=== PATIENT | female | born 2000 | race Caucasian/White ===

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

== ENCOUNTER 2022-03-06 03:23 | Emergency (ER) | payer OTHER ==
--- OUTSIDE RECORDS SUMMARY | 2022-03-06 03:26 | XMS REPORT | Continuity of Care Document ---
:2000 Author Organization [facility] t Address [address] [place] [address] Care Team Providers Name Role Phone Unique_Adina Attending Clinician Unavailable Unique_Adina Admitting Clinician Unavailable Payers Payer Name Policy Type Policy Number Effective Date Expiration Date Parvin alcaraz [facility] [id number] 2020 00:00:00 Problems Condition Condition Condition Status Onset Resolution Last Treating Co mments Source Name Details Category Date Date Treatment Clinician Date Trichomona Trichomona Problem Active M atagor l l 18 da vaginitis Vaginitis 00:00: Medi margarita 00 Group Allergies, Adverse Reactions, Alerts This patient has no known allergies or adverse reactions. Social History Smoking Status Start Date Stop Date Source Current Some Day Smoker [facility] Medications Ordered Filled Start [...] Source BP Diastolic 2021-06-25 00:00:00 82 mm[Hg] [facility] Height 2021-06-25 00:00:00 60.8 [in_i] [facility] BMI (Body Mass 2021-06-25 00:00:00 23 kg/m2 [facility] Index) Group BP Systolic 2021-06-25 00:00:00 137 mm[Hg] [facility] Body Weight 2021-06-25 00:00:00 1936 [oz_av] [facility] Procedures This patient has no known procedures. Plan of Care Planned Activity Planned Date Details Comments Source Diagnostic Test 2021-06-25 CMP, serum or plasma [facility] Pending 00:00:00 [code = CMP, serum Group or plasma] Diagnostic Test 2021-06-25 TSH + T4, serum [facility] Pending 00:00:00 [code = TSH + T4, Group serum] Diagnostic Test 2021-06-25 urinalysis complete, [facility] Pending 00:00:00 reflex culture [code Group = urinalysis complete, reflex culture] Diagnostic Test 2021-06-25 CBC w/ auto diff [facility] 00:00:00 [code = CBC w/ auto Group diff] Diagnostic Test 2021-06-25 [facility] Pending 00:00:00 [code = lipid panel, Group serum] Diagnostic Test 2021-06-25 [facility]oglobin [facility] Pending 00:00:00 A1c), blood [code = Group HbA1c (hemoglobin A1c), blood] Diagnostic Test 2021-06-[address] [facility] Pending 00:00:00 virus A + B and SARS Group CoV + SARS CoV 2 Ag panel, IA, upper respiratory specimen [code = rapid influenza virus A + B and SARS CoV + SARS CoV 2 Ag panel, IA, upper respiratory specimen] Future Appointment 2022-06-25 Liliane Unique, Everardo [facility] 00:00:00 [facility] [address]; [place] [address] Encounters Start End Encounter Admission Attending Care Care Encounter Source Date/Time Date/Time Type Type Clinicians Facility Department ID 2021-06-25 2021-06-25 Outpatient AlmadAina [facility] [id number] [place] 04:57:00 04:57:00 [facility] 2021-06-25 2021-06-25 Liliane JOCY [place] - [id number] [facility] 00:00:00 00:00:00 Pat Arguelles [facility] [employer]FFY CANDY MAKER: [address], [place] [address] , Ph. Results Test Description Test Time [...] (test code = RAPID FLU B) negative [facility] W Auto Differential panel - [id number] 02:07:00 Test Item Value Reference Range Interpretation Comments white blood count (test code = 9.1 K/uL 4.0-11.5 white blood count) red blood count (test code = red 5.09 M/uL 3.80-5.20 blood count) hemoglobin (test code = 14.5 g/dL 10.5-15.7 hemoglobin) hematocrit (test code = 44.4 % 34.0-50.0 hematocrit) MCV [Entitic volume] (test code = 87.2 fL 86.0-100.0 92337-7) mean corpuscular hemoglobin (test 28.5 pg 26.2-33.4 [...] 44.4-80.1 leukocytes in Blood (test code = 13323-8) Immature granulocytes [#/volume] 0.03 K/uL 0.00-0.03 in Blood (test code = 18765-8) lymphocyte% (test code = 21.0 % 10.0-50.0 lymphocyte%) mono % (test code = mono %) 5.5 % 3.6-12.0 eos % (test code = eos %) 3.2 % 0.0-5.4 Basophils/100 leukocytes in 0.8 % 0.1-1.2 Unspecified specimen (test code = 51645-1) Band form neutrophils [#/volume] 6.33 K/uL 1.56-6.13 H in Blood (test code = 40045-4) Lymphocytes [#/volume] in 1.92 K/uL 1.18-3.74 Unspecified specimen by Automated count (test code = 11809-5) mono # (test code = mono #) 0.50 K/uL 0.24-0.86 eos # (test code = eos #) 0.29 K/uL 0.04-0.36 basophil # (test code = basophil 0.07 K/uL 0.01-0.08 #) NRBC% (test code = NRBC%) 0 /100 WBC 0-0.2 NRBC# (test code = NRBC#) 0 K/uL [facility] - Serum or [id number] 02:07:00 Test Item Value Reference Range Interpretation Comments cholesterol level (test code = 229 mg/dL 150-200 H cholesterol level) triglycerides level (test code = 63 mg/dL <150 triglycerides level) HDL cholesterol (test code = HDL 70 mg/dL >65 cholesterol) LDL cholesterol direct (test code = 139 mg/dL <100 H LDL cholesterol direct) cholesterol risk ratio (test code = 3.271 cholesterol risk ratio) [facility] W Reflex Culture panel - Urine 2021-06-25 02:07:00 Test Item Value Reference Range Interpretation Comments Color of Urine by Auto (test code = yellow 96616-6) Appearance of Urine (test code = SL cloudy clear A 5767-9) Glucose [Presence] in Urine by negative negative Automated test strip (test code = 54069-1) Bilirubin.total [Mass/volume] in negative negative Urine (test code = 1977-11) Ketones [Mass/volume] in Urine by =1 negative H Automated test strip (test code = 44227-2) Specific gravity of Urine by 1.031 1.003-1.030 H Automated test strip (test code = 26945-7) blood urine (test code = blood negative negative urine) pH of Urine (test code = 2756-5) 5.500 5-9 protein urine (UA) (test code = trace negative protein urine (UA)) Urobilinogen [Presence] in Urine normal 0.2-1.0 (test code = 04741-1) Nitrite [Presence] in Urine by Test negative negative strip (test code = 5802-4) Leukocyte esterase [Presence] in =4 negative H Urine by Automated test strip (test code = 11733-7) Erythrocytes [#/volume] in Urine by =11-14 0-5 H Automated count (test code = 798-9) Leukocytes [#/area] in Urine =30-49 0-5 H sediment by Automated count (test code = 30002-5) Epithelial cells [Presence] in =11-14 0-5 Urine sediment by Light microscopy (test code = 94177-3) Bacteria identified in Urine by large (3 none detect H Culture (test code = 630-4) Casts [#/area] in Urine sediment by =11-14 none detect H Automated count (test code = 98656-4) urine culture added? (test code = yes urine culture added?) trichomonas, urine (test code = =3-4 none seen H trichomonas, urine) Pathologic casts [Presence] in none seen none detect Urine by Automated (test code = 67263-5) [facility] Urine by [id number] 02:07:00Bacteria Ur [facility]Mass/volume] in [id number] 00:00:00 Test Item Value Reference Range Interpretation Comments Hemoglobin A1c [Mass/volume] in Blood 5.1 % 4.0-6.0 (test code = 13683-3) [facility] CenterCom[facility] 2000 panel - Serum or Plasma [...] Serum or Plasma (test code = 6768-6) [facility]ropin [Units/volume] in Serum or [id number] 00:00:00 Test Item Value Reference Range Interpretation Comments Thyrotropin [Units/volume] in 0.73 uIU/mL 0.36-3.74 Serum or Plasma (test code = 3016-3) [facility] Center[facility]yroxine (T4) [Mass/volume] in Serum or [id number] 00:00:00 Test Item Value Reference Range Interpretation Comments T4 (test code = T4) 10.4 ug/dL 4.5-11.7 [facility]
--- NOTE | 2022-03-06 03:55 | EDPHYS ---
Physician Documentation [facility] Name: Bryon Trinidad Age: 21 yrs Sex: Female : 2000 Arrival Date: 03/06/2022 Time: 03:26 Bed 16 Private MD: ED Physician Lisette Perry HPI: 03/06 03:49 This 21 yrs old Female presents to ER via Ambulatory with complaints of Swelling Of sp3 Tongue and salivary gland. 03:49 21-year-old female with no significant past medical history and history of sp3 sialolithiasis and prior salivary gland infection presents to the ED for 2-day history of right lower tongue and frenulum pain along with swelling at the lower mandibular salivary gland meatus. This has been occurring for the last 24 hours progressive fashion fever, difficulty swallowing, tongue swelling, pharyngeal swelling, shortness of breath, chest pain or any other symptoms associated. Review of systems is otherwise negative.. Historical: - Allergies: 03:51 No Known Allergies; jb4 - PMHx: 03:51 Asthma; jb4 - PSHx: 03:51 None; jb4 - Immunization history:: Adult Immunizations up to date. - Social history:: Smoking status: Patient denies any tobacco usage or history of. Patient uses street drugs, marijuana. ROS: 03:51 Constitutional: Negative for fever, chills, and weight loss, Eyes: Negative for injury, sp3 pain, redness, and discharge, Neck: Negative for injury, pain, and swelling, Cardiovascular: Negative for chest pain, palpitations, and edema, Respiratory: Negative for shortness of breath, cough, wheezing, and pleuritic chest pain, Abdomen/GI: Negative for abdominal pain, nausea, vomiting, diarrhea, and constipation, Back: Negative for injury and pain, MS/Extremity: Negative for injury and deformity, Skin: Negative for injury, rash, and discoloration, Neuro: Negative for headache, weakness, numbness, tingling, and seizure, Psych: Negative for depression, anxiety, suicide ideation, homicidal ideation, and hallucinations, Allergy/Immunology: Negative for hives, rash, and allergies, Endocrine: Negative for neck swelling, polydipsia, polyuria, polyphagia, and marked weight changes. 03:51 All other systems are negative. Exam: 03:51 Constitutional: This is a well developed, well nourished patient who is awake, alert, sp3 and in no acute distress. Head/Face: Normocephalic, atraumatic. Eyes: Pupils equal round and reactive to light, extra-ocular motions intact. Lids and lashes normal. Conjunctiva and sclera are non-icteric and not injected. Cornea within normal limits. Periorbital areas with no swelling, redness, or edema. Neck: Trachea midline, no thyromegaly or masses palpated, and no cervical lymphadenopathy. Supple, full range of motion without nuchal rigidity, or vertebral point tenderness. No Meningismus. Chest/axilla: Normal chest wall appearance and motion. Nontender with no deformity. No lesions are appreciated. Cardiovascular: Regular rate and rhythm with a normal S1 and S2. No gallops, murmurs, or rubs. Normal PMI, no JVD. No pulse deficits. Respiratory: Lungs have equal breath sounds bilaterally, clear to auscultation and percussion. No rales, rhonchi or wheezes noted. No increased work of breathing, no retractions or nasal flaring. Abdomen/GI: Soft, non-tender, with normal bowel sounds. No distension or tympany. No guarding or rebound. No evidence of tenderness throughout. Skin: Warm, dry with normal turgor. Normal color with no rashes, no lesions, and no evidence of cellulitis. MS/ Extremity: Pulses equal, no cyanosis. Neurovascular intact. Full, normal range of motion. Neuro: Awake and alert, GCS 15, oriented to person, place, time, and situation. Cranial nerves II-XII grossly intact. Motor strength 5/5 in all extremities. Sensory grossly intact. Cerebellar exam normal. Normal gait. Psych: Awake, alert, with orientation to person, place and time. Behavior, mood, and affect are within normal limits. 03:51 ENT: Normal ENT exam with exception of mild swelling in the right lower mandibular salivary gland with associated mild pain. There is no tongue swelling or pharyngeal swelling. Airway is intact the patient has no difficulty with secretions or breathing. Pulse ox is 100% on room air.. Vital Signs: 03:49 BP 131 / 65; Pulse 92; Resp 16; Temp 99.3(O); Pulse Ox 99% on R/A; Weight 58.97 kg; jb4 Height 5 ft. 1 in. (154.94 cm); Pain 3; 03:49 Body Mass Index 24.56 (58.97 kg, 154.94 cm) jb4 MDM: 03:46 Patient medically screened. sp3 03:52 Data reviewed: vital signs, nurses notes. ED course: Will administer ketorolac 30 mg IM sp3 and discharge patient on p.o. Augmentin. Patient likely has a mild salivary gland infection there is no signs of sepsis, pharyngitis, Bo's angina, lymphadenopathy, retropharyngeal abscess, airway compromise or angioedema, dental infection, sinusitis, or any other diagnoses at this time. Patient is okay with the plan and has no further questions. She will follow-up with her primary care physician.. Administered Medications: 04:05 Drug: Ketorolac 30 mg Route: IM; Site: left deltoid; jb4 04:05 Follow up: Response: Medication administered at discharge. jb4 Disposition Summary: 03/06/22 03:54 Discharge Ordered Location: Home sp3 Condition: Stable sp3 Diagnosis - Acute sialoadenitis sp3 Followup: sp3 - With: Private Physician - When: Upon discharge from the Emergency Department - Reason: Recheck today's complaints Discharge Instructions: - Discharge Summary Sheet sp3 - Salivary Gland Infection sp3 Forms: - Medication Reconciliation Form sp3 - Thank You Letter sp3 - Antibiotic Education sp3 - Prescription Opioid Use sp3 Prescriptions: - Augmentin 875-125 mg Oral Tablet - take 1 tablet by ORAL route every 12 hours for 10 days; 20 tablet; Refills: 0, sp3 Product Selection Permitted Signatures: Dakota Toure RN RN jb4 Lisette Perry MD MD sp3
--- NOTE | 2022-03-06 03:55 | ER ---
Nurse's Notes [facility] Name: Byron Trinidad Age: 21 yrs Sex: Female : 2000 Arrival Date: 03/06/2022 Time: 03:26 Bed 16 Private MD: Diagnosis: Acute sialoadenitis Presentation: 03/06 03:32 Chief complaint: Patient states: swelling under tongue off and on x 2 months reports kl worse tonight able to handle secretions respirations even non labored reports similar episode previously. 03:32 Method Of Arrival: Ambulatory kl 03:49 Coronavirus screen: At this time, the client does not indicate any symptoms associated jb4 with coronavirus-19. Ebola Screen: No symptoms or risks identified at this time. Initial Sepsis Screen: Does the patient meet any 2 criteria? HR > 90 bpm. Yes Does the patient have a suspected source of infection? No. Patient's initial sepsis screen is negative. Risk Assessment: Do you want to hurt yourself or someone else? Patient reports no desire to harm self or others. Onset of symptoms was March 06, 2022. 03:49 Acuity: DILAN 4 jb4 Triage Assessment: 03:34 General: Appears in no apparent distress. comfortable, Behavior is calm, cooperative. kl Respiratory: Airway is patent Trachea midline Respiratory effort is even, unlabored, Respiratory pattern is regular, symmetrical. Historical: - Allergies: 03:51 No Known Allergies; jb4 - PMHx: 03:51 Asthma; jb4 - PSHx: 03:51 None; jb4 - Immunization history:: Adult Immunizations up to date. - Social history:: Smoking status: Patient denies any tobacco usage or history of. Patient uses street drugs, marijuana. Screenin:06 Abuse screen: Denies threats or abuse. Nutritional screening: No deficits noted. jb4 Tuberculosis screening: No symptoms or risk factors identified. Fall Risk None identified. Assessment: 03:51 General: Appears in no apparent distress. comfortable, Behavior is calm, cooperative, jb4 appropriate for age. Pain: Complains of pain in mouth Pain does not radiate. Pain currently is 3 out of 10 on a pain scale. Neuro: Level of Consciousness is awake, alert, obeys commands, Oriented to person, place, time, situation. Cardiovascular: Patient's skin is warm and dry. Respiratory: Airway is patent Respiratory effort is even, unlabored, Respiratory pattern is regular, symmetrical, Breath sounds are clear bilaterally. GI: No signs and/or symptoms were reported involving the gastrointestinal system. : No signs and/or symptoms were reported regarding the genitourinary system. EENT: swelling to the right underside of the tongue is noted.. Derm: Skin is intact, Skin is pink, warm \T\ dry. Musculoskeletal: Circulation, motion, and sensation intact. Range of motion: intact in all extremities. Vital Signs: 03:49 BP 131 / 65; Pulse 92; Resp 16; Temp 99.3(O); Pulse Ox 99% on R/A; Weight 58.97 kg; jb4 Height 5 ft. 1 in. (154.94 cm); Pain 3/10; 03:49 Body Mass Index 24.56 (58.97 kg, 154.94 cm) jb4 ED Course: 03:26 Patient arrived in ED. ja2 03:45 Lisette Perry MD is Attending Physician. sp3 03:49 Dakota Toure RN is Primary Nurse. jb4 03:50 Triage completed. jb4 03:51 Arm band placed on right wrist. jb4 04:06 Patient has correct armband on for positive identification. Bed in low position. Call jb4 light in reach. Side rails up X 1. Client placed on continuous cardiac and pulse oximetry monitoring. NIBP monitoring applied. 04:06 No provider procedures requiring assistance completed. Patient did not have IV access jb4 during this emergency room visit. Administered Medications: 04:05 Drug: Ketorolac 30 mg Route: IM; Site: left deltoid; jb4 04:05 Follow up: Response: Medication administered at discharge. jb4 Outcome: 03:54 Discharge ordered by . sp3 04:06 Discharged to home ambulatory. jb4 04:06 Condition: stable 04:06 Discharge instructions given to patient, Instructed on discharge instructions, follow up and referral plans. medication usage, Demonstrated understanding of instructions, follow-up care, medications, Prescriptions given X 1. 04:07 Patient left the ED. jb4 Signatures: Shruthi Floyd RN RN kl Bryson, James, RN RN jb Lisette Perry MD MD sp3 Asia Granados [facility]
[2022-03-06] MEDS ORDERED: KETOROLAC 30 MG/ML INJ ONE (04:00)
[2022-03-08 04:28] VITALS: BP 131/65; TEMP 99.3; O2SAT 99
== END 2022-03-06 04:07 | disposition home or self-care (01) ==
LOC: ER 03:23
DX: K11.21 Acute sialoadenitis (principal)
CPT/HCPCS: 96372; 99283

== ENCOUNTER → 2023-07-25 | Emergency (ER) | payer OTHER ==
[~2023-07-25] MED LIST: DIPHENHYDRAMINE 50 MG/ML VIAL ONE; NA CHLORIDE 0.9% 1,000 ML ONE; dexAMETHasone 10 MG/ML VIAL ONE; dexAMETHasone 4 MG/ML VIAL ONE
--- OUTSIDE RECORDS SUMMARY | 2023-07-25 22:36 | XMS REPORT | Continuity of Care Document ---
Author Name Unknown Address [address] [facility] [address] [place] [address] [facility] Address [address] [facility]. [address] [place] [address] Care Team Providers Care Cardiology Technician Name Role Phone Pcp, Patient Does Not Have A Primary Care Physic alejandra [email or web address]_S Attending Clinician Unavaila Orestes Pascual MD Attending Clinician + [phone] ORESTES HALL Attending Clinician Unahelen lopez Doctor Unassigned, [place] Attending Clinician U JAQUELINE Gaming Attending Clinician Unavailab Jaqueline Lares DO Attending Clinician [phone] ANNIE WATERS Attending Clinician Unavailable L_Ankush Attending Clinician Unavailable Eav Fernandez PA-C Attending Clinician [phone] DHRUV ARELLANO Attending Clinician Unavailable Dhruv Arellano MD Attending Clinician [phone] Po, [facility] Main Attending Clinician UnavailEVA Su Attending Clinician Unavailable Phillip Pope MD Attending Clinician [phone] ANITA BURNHAM Attending Clinician Unavailable Anita Kamara Attending Clinician [phone] Francisco Javier Attending Clinician Unavailable LATASHA RANKIN Attending Clinician Unavailable Nurse, [facility] Attending Clinician Un available PHILLIP POPE Attending Clinician Unavailable 2, [facility] Attending Clinician Unavailable GC_GCBZW_Kadiyala_S Admitting Clinician Unavaila ble L_Pena Admitting Clinician Unavailable ANITA BURNHAM Admitting Clinician Unavailable Francisco Javier Admitting Clinician Unavailable Payers Payer Name Policy Type Policy Number Effective Date Expirati on Date Source [employer] [id number] 2020 00:00:00 RODGER AN Yemeksepeti [id number] 2018 00:00:00 Problems Condition Name Condition Details Condition Category Status Onset Date Resolution Date Last Treatment Date Treating Clinician Comments Source Sialoadeni tis Sialoadeni tis Problem Active 2021-06 00:00: 00 [facility] Sialolithi asis Sialolithi asis Problem Active 2021-06 00:00: 00 [facility] Trichomona l vaginitis Trichomona l Vaginitis Problem Active 06-26 00:00: 00 [facility] Nexplanon in place Nexplanon in place Disease Active 12-30 00:00: 00 [facility] Right ankle pain Right ankle pain Disease Active 2015-06 004 00:00: 00 [facility] Allergies, Adverse Reactions, Alerts Allergy Name Allergy Type Status Severity Reaction(s) Onset Date Inactive Date Treating Clinician Comments Source NO KNOWN ALLERGIE S Drug Class Active [facility] Social History Social Habit Start Date Stop Date Quantity Comments [facility] 2022-11-19 00:00:00 2022-11-19 00:00:00 Current non-drinker of alcohol (finding) [facility] Tobacco use and exposure 2022-11-19 00:00:00 2022-11-19 00:00:00 Smokeless tobacco non-user [facility] Exposure to SARS-CoV-2 (event) 2022-10-26 00:00:00 2022-11-05 13:21:00 Not sure [facility] History of Social function 2020-01-12 00:00:00 2020-01-12 00:00:00 [facility] Sex Assigned At 2002 00:00:00 2000 00:00:00 [facility] Smoking Status Start Date Stop Date Source Current Some Day Smoker Hung [facility] Never smoked tobacco [facility] Medications Ordered Medication Name Filled Medication Name Start Date Stop Date Current Medication? Ordering Clinician Indication Dosage Frequency Signature (SIG) Comments Components Source etonogestre L (NEXPLANON) implant 68 mg 11-19 16:45: 00 11-19 15:59 :00 No [id number] [facility] etonogestre L (NEXPLANON) implant 68 mg 11-19 16:45: 00 11-19 15:59 :00 No [id number] 68mg 68 mg, Subdermal, ONCE, 1 dose, On Fri11/19/22 at 1145, Routine
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
Use approved by: B[employer]ER C[employer]TER [facility] IBUPROFEN ORAL 11-19 10:29: 37 Yes Take by mouth. [facility] IBUPROFEN ORAL 11-19 10:29: 37 Yes Take by mouth. [facility] IBUPROFEN ORAL 11-19 10:29: 37 Yes Take by mouth. [facility] clindamycin 300 mg capsule 2021-06 00:00: 00 06-15 05:59 :00 No [id number] 300mg Take 1 capsule by mouth 4 (four) times daily for 10 days. [facility] naproxen 500 mg tablet 2021-06 00:00: 00 06-15 05:59 :00 No [id number] 500mg Take 1 tablet by mouth in the morning and 1 tablet in the evening. Take with meals. Do all this for 10 days. [facility] clindamycin 300 mg capsule 2021-06 00:00: 00 06-15 05:59 :00 No [id number] 300mg Take 1 capsule by mouth 4 (four) times daily for 10 days. [facility] naproxen 500 mg tablet 2021-06 00:00: 00 06-15 05:59 :00 No [id number] 500mg Take 1 tablet by mouth in the morning and 1 tablet in the evening. Take with meals. Do all this for 10 days. [facility] naproxen sodium 220 mg tablet 2021-06 16:01: 45 Yes 220mg Take 220 mg by mouth 2 (two) times daily with meals. [facility] naproxen sodium 220 mg tablet 2021-06 16:01: 45 Yes 220mg Take 220 mg by mouth 2 (two) times daily with meals. [facility] naproxen sodium 220 mg tablet 2021-06 16:01: 45 Yes 220mg Take 220 mg by mouth 2 (two) times daily with meals. [facility] naproxen sodium 220 mg tablet 2021-06 16:01: 45 Yes 220mg Take 220 mg by mouth 2 (two) times daily with meals. [facility] naproxen sodium 220 mg tablet 2021-06 16:01: 45 Yes 220mg Take 220 mg by mouth 2 (two) times daily with meals. [facility] naproxen sodium 220 mg tablet 2021-06 16:01: 45 Yes 220mg Take 220 mg by mouth 2 (two) times daily with meals. [facility] naproxen sodium 220 mg tablet 2021-06 16:01: 45 Yes 220mg Take 220 mg by mouth 2 (two) times daily with meals. [facility] naproxen sodium 220 mg tablet 2021-06 16:01: 45 Yes 220mg Take 220 mg by mouth 2 (two) times daily with meals. [facility] naproxen sodium 220 mg tablet 2021-06 16:01: 45 Yes 220mg Take 220 mg by mouth 2 (two) times daily with meals. [facility] naproxen sodium 220 mg tablet 2021-06 16:01: 45 Yes 220mg Take 220 mg by mouth 2 (two) times daily with meals. [facility] naproxen sodium 220 mg tablet 2021-06 16:01: 45 Yes 220mg Take 220 mg by mouth 2 (two) times daily with meals. [facility] iopamidol (ISOVUE 370-500 mL) injection 75 mL 2021-06 06:00: 00 04-17 06:00 :00 No [id number] 75mL 75 mL, Intravenou s, ONCE, 1 dose, On Fri04/17/22 at 0000, Routine [facility] NaCl 0.9% (NS) bolus infusion 1,000 mL 2021-06 06:00: 00 04-17 06:47 :00 No 1000mL at 999 mL/hr, 1,000 mL, IV Infusion, ONCE, 1 dose, On Fri04/17/22 at 0000, [facility]efTR[facility]one (ROCEPHIN) 1,000 mg in NaCl 0.9% (NS) 50 mL MINI-BAG 2021-06 05:45: 00 04-17 06:05 :00 No 1000mg 1,000 mg, IV Piggyback, ONCE, 1 dose, On Fri04/16/22 at 2345, Administer over 30 Minutes, 50 mL
Reas on for Anti-Infec tive: Documented Infection< br>Documen ashley Infection Site: Urine
D uration of Therapy: 7 days [facility] ondansetron (ZOFRAN (PF)) injection 4 mg 2021-06 05:15: 00 04-17 05:07 :00 No 4mg 4 mg, Slow IV Push, ONCE, 1 dose, On Fri04/16/22 at 2315, HUDSON [facility] ketorolac (TORADOL) injection 30 mg 2021-06 05:10: 00 04-17 05:11 :00 No 30mg 30 mg, Slow IV Push, ONCE, 1 dose, On Fri04/16/22 at 2315, Routine [facility] ondansetron 4 mg disintegrat ing tablet 2021-06 00:00: 00 Yes [id number] 4mg Take 1 tablet by mouth every 8 (eight) hours as needed for Nausea and Vomiting (N/V). [facility] ondansetron 4 mg disintegrat ing tablet 2021-06 00:00: 00 Yes [id number] 4mg Take 1 tablet by mouth every 8 (eight) hours as needed for Nausea and Vomiting (N/V). [facility] ondansetron 4 mg disintegrat ing tablet 2021-06 00:00: 00 Yes [id number] 4mg Take 1 tablet by mouth every 8 (eight) hours as needed for Nausea and Vomiting (N/V). [facility] ondansetron 4 mg disintegrat ing tablet 2021-06 00:00: 00 Yes [id number] 4mg Take 1 tablet by mouth every 8 (eight) hours as needed for Nausea and Vomiting (N/V). [facility] ondansetron 4 mg disintegrat ing tablet 2021-06 00:00: 00 Yes [id number] 4mg Take 1 tablet by mouth every 8 (eight) hours as needed for Nausea and Vomiting (N/V). [facility] ondansetron 4 mg disintegrat ing tablet 2021-06 00:00: 00 Yes [id number] 4mg Take 1 tablet by mouth every 8 (eight) hours as needed for Nausea and Vomiting (N/V). [facility] ondansetron 4 mg disintegrat ing tablet 2021-06 00:00: 00 Yes [id number] 4mg Take 1 tablet by mouth every 8 (eight) hours as needed for Nausea and Vomiting (N/V). [facility] ondansetron 4 mg disintegrat ing tablet 2021-06 00:00: 00 Yes [id number] 4mg Take 1 tablet by mouth every 8 (eight) hours as needed for Nausea and Vomiting (N/V). [facility] ondansetron 4 mg disintegrat ing tablet 2021-06 00:00: 00 Yes [id number] 4mg Take 1 tablet by mouth every 8 (eight) hours as needed for Nausea and Vomiting (N/V). [facility] ondansetron 4 mg disintegrat ing tablet 2021-06 00:00: 00 Yes [id number] 4mg Take 1 tablet by mouth every 8 (eight) hours as needed for Nausea and Vomiting (N/V). [facility] ondansetron 4 mg disintegrat ing tablet 2021-06 00:00: 00 Yes [id number] 4mg Take 1 tablet by mouth every 8 (eight) hours as needed for Nausea and Vomiting (N/V). [facility] ondansetron 4 mg disintegrat ing tablet 2021-06 00:00: 00 Yes [id number] 4mg Take 1 tablet by mouth every 8 (eight) hours as needed for Nausea and Vomiting (N/V). [facility] ondansetron 4 mg disintegrat ing tablet 2021-06 00:00: 00 Yes [id number] 4mg Take 1 tablet by mouth every 8 (eight) hours as needed for Nausea and Vomiting (N/V). [facility] cefdinir 300 mg capsule 2021-06 00:00: 00 04-28 05:59 :00 No [id number] 300mg Take 1 capsule by mouth every 12 (twelve) hours for 10 days. [facility] etonogestre l (NEXPLANON) implant 68 mg 12-31 00:45: 00 12-30 23:38 :00 No 68mg [facility] etonogestre l (NEXPLANON) implant 68 mg 12-31 00:45: 00 12-30 23:38 :00 No 68mg 68 mg, Subdermal, ONCE NOW, 1 dose, Fri12/31/19 at 1945, Routine
Use approved by: [employer]ER [employer]TER [facility] etonogestre l (NEXPLANON) implant 68 mg 7 00:45: 00 12-30 23:38 :00 No 68mg [facility] etonogestre l (NEXPLANON) implant 68 mg 7 00:45: 00 12-30 23:38 :00 No 68mg 68 mg, Subdermal, ONCE NOW, 1 dose, Fri12/31/19 at 1945, Routine
Use approved by: [employer] [facility] metroNIDAZO LE 500 mg tablet 12-18 00:00: 00 12-19 04:59 :00 No [id number] 2000mg Take 4 tablets by mouth once now for 1 dose. [facility] metroNIDAZO LE 500 mg tablet 0 -19 00:00: 00 Yes [id number] 500mg Take 1 tablet by mouth every 12 (twelve) hours. [facility] metroNIDAZO LE 500 mg tablet 0 -19 00:00: 00 Yes [id number] 500mg Take 1 tablet by mouth every 12 (twelve) hours. [facility] metroNIDAZO LE 500 mg tablet 0 19 00:00: 00 Yes [id number] 500mg Take 1 tablet by mouth every 12 (twelve) hours. [facility] metroNIDAZO LE 500 mg tablet 0 19 00:00: 00 Yes [id number] 500mg Take 1 tablet by mouth every 12 (twelve) hours. [facility] metroNIDAZO LE 500 mg tablet 0 319 00:00: 00 Yes [id number] 500mg Take 1 tablet by mouth every 12 (twelve) hours. [facility] metroNIDAZO LE 500 mg tablet 2019-0 3-19 00:00: 00 Yes [id number] 500mg Take 1 tablet by mouth every 12 (twelve) hours. [facility] metroNIDAZO LE 500 mg tablet 2019-0 3-19 00:00: 00 Yes [id number] 500mg Take 1 tablet by mouth every 12 (twelve) hours. [facility] metroNIDAZO LE 500 mg tablet 2020-0 3-19 00:00: 00 Yes [id number] 500mg Take 1 tablet by mouth every 12 (twelve) hours. [facility] metroNIDAZO LE 500 mg tablet 2020-0 3-19 00:00: 00 Yes [id number] 500mg Take 1 tablet by mouth every 12 (twelve) hours. [facility] metroNIDAZO LE 500 mg tablet 2020-0 3-19 00:00: 00 Yes [id number] 500mg Take 1 tablet by mouth every 12 (twelve) hours. [facility] metroNIDAZO LE 500 mg tablet 2020-0 3-19 00:00: 00 Yes [id number] 500mg Take 1 tablet by mouth every 12 (twelve) hours. [facility] metroNIDAZO LE 500 mg tablet 2020-0 3-19 00:00: 00 Yes [id number] 500mg Take 1 tablet by mouth every 12 (twelve) hours. [facility] metroNIDAZO LE 500 mg tablet 2020-0 3-19 00:00: 00 Yes [id number] 500mg Take 1 tablet by mouth every 12 (twelve) hours. [facility] metroNIDAZO LE 500 mg tablet 2020-0 3-19 00:00: 00 Yes [id number] 500mg Take 1 tablet by mouth every 12 (twelve) hours. [facility] metroNIDAZO LE 500 mg tablet 2020-0 3-19 00:00: 00 Yes [id number] 500mg Take 1 tablet by mouth every 12 (twelve) hours. [facility] metroNIDAZO LE 500 mg tablet 2020-0 3-19 00:00: 00 Yes [id number] 500mg Take 1 tablet by mouth every 12 (twelve) hours. [facility] metroNIDAZO LE 500 mg tablet 2020-0 3-19 00:00: 00 Yes [id number] 500mg Take 1 tablet by mouth every 12 (twelve) hours. [facility] metroNIDAZO LE 500 mg tablet 2020-0 3-19 00:00: 00 Yes [id number] 500mg Take 1 tablet by mouth every 12 (twelve) hours. [facility] metroNIDAZO LE 500 mg tablet 2020-0 3-19 00:00: 00 Yes [id number] 500mg Take 1 tablet by mouth every 12 (twelve) hours. [facility] metroNIDAZO LE 500 mg tablet 0 08-25 00:00: 00 Yes [id number] 500mg Take 1 tablet by mouth every 12 (twelve) hours. [facility] metroNIDAZO LE 500 mg tablet 08-25 00:00: 00 Yes [id number] 500mg Take 1 tablet by mouth every 12 (twelve) hours. [facility] metroNIDAZO LE 500 mg tablet 08-25 00:00: 00 Yes [id number] 500mg Take 1 tablet by mouth every 12 (twelve) hours. [facility] metroNIDAZO LE 500 mg tablet 08-25 00:00: 00 Yes [id number] 500mg Take 1 tablet by mouth every 12 (twelve) hours. [facility] naproxen sodium (ALEVE) 220 mg tablet 2015-06 20:46: 14 Yes 220mg Take 220 mg by mouth 2 (two) times daily with meals. [facility] naproxen sodium (ALEVE) 220 mg tablet 2015-06 20:46: 14 Yes 220mg Take 220 mg by mouth 2 (two) times daily with meals. [facility] naproxen sodium (ALEVE) 220 mg tablet 2015-06 20:46: 14 Yes 220mg Take 220 mg by mouth 2 (two) times daily with meals. [facility] naproxen sodium (ALEVE) 220 mg tablet 2015-06 20:46: 14 Yes 220mg Take 220 mg by mouth 2 (two) times daily with meals. [facility] naproxen sodium (ALEVE) 220 mg tablet 2015-06 20:46: 14 Yes 220mg Take 220 mg by mouth 2 (two) times daily with meals. [facility] naproxen sodium (ALEVE) 220 mg tablet 2015-06 20:46: 14 Yes 220mg Take 220 mg by mouth 2 (two) times daily with meals. [facility] naproxen sodium (ALEVE) 220 mg tablet 2015-06 20:46: 14 Yes 220mg Take 220 mg by mouth 2 (two) times daily with meals. [facility] naproxen sodium (ALEVE) 220 mg tablet 2015-06 20:46: 14 Yes 220mg Take 220 mg by mouth 2 (two) times daily with meals. [facility] naproxen sodium (ALEVE) 220 mg tablet 2015-06 20:46: 14 Yes 220mg Take 220 mg by mouth 2 (two) times daily with meals. [facility] naproxen sodium (ALEVE) 220 mg tablet 2015-06 20:46: 14 Yes 220mg Take 220 mg by mouth 2 (two) times daily with meals. [facility] naproxen sodium (ALEVE) 220 mg tablet 2015-06 20:46: 14 Yes 220mg Take 220 mg by mouth 2 (two) times daily with meals. [facility] naproxen sodium (ALEVE) 220 mg tablet 2015-06 20:46: 14 Yes 220mg Take 220 mg by mouth 2 (two) times daily with meals. [facility] naproxen sodium (ALEVE) 220 mg tablet 2015-06 20:46: 14 Yes 220mg Take 220 mg by mouth 2 (two) times daily with meals. [facility] naproxen sodium (ALEVE) 220 mg tablet 2015-06 20:46: 14 Yes 220mg Take 220 mg by mouth 2 (two) times daily with meals. [facility] naproxen sodium (ALEVE) 220 mg tablet 2015-06 20:46: 14 Yes 220mg Take 220 mg by mouth 2 (two) times daily with meals. [facility] naproxen sodium (ALEVE) 220 mg tablet 2015-06 15:46: 14 Yes 220mg Take 220 mg by mouth 2 (two) times daily with meals. [facility] naproxen sodium (ALEVE) 220 mg tablet 2015-06 15:46: 14 Yes 220mg Take 220 mg by mouth 2 (two) times daily with meals. [facility] cefdinir 300 mg capsule TAKE 1 CAPSULE BY MOUTH EVERY 12 HOURS FOR 10 DAYS cefdinir 300 mg capsule TAKE 1 CAPSULE BY MOUTH EVERY 12 HOURS FOR 10 DAYS No cefdinir 300 mg capsule TAKE 1 CAPSULE BY MOUTH EVERY 12 HOURS FOR 10 DAYS [facility] cephalexin 500 mg capsule Take 1 capsule every 6 hours by oral route for 10 days. cephalexin 500 mg capsule Take 1 capsule every 6 hours by oral route for 10 days. No 1capsul e(s) Q6H cephalexin 500 mg capsule Take 1 capsule every 6 hours by oral route for 10 days. [facility] metronidazo le 500 mg tablet Take 4 tablets by oral route. metronidazo le 500 mg tablet Take 4 tablets by oral route. No 4 metronidaz ole 500 mg tablet Take 4 tablets by oral route. [facility] Nexplanon Nexplanon No Nexplanon [facility] Vital Signs Vital Name Observation Time Observation Value Comments S ource Systolic blood pressure 2022-11-19 15:28:00 121 mm[Hg] [facility] Diastolic blood pressure 2022-11-19 15:28:00 79 mm[Hg] [facility] Heart rate 2022-11-19 15:28:00 73 /min [facility] Body temperature 2022-11-19 15:28:00 36.94 [place] [facility] Body height 2022-11-19 15:28:00 152.4 cm [facility] Body weight 2022-11-19 15:28:00 62.687 kg [facility] BMI 2022-11-19 15:28:00 26.99 kg/m2 [facility] Systolic blood pressure 2022-11-05 18:18:00 130 mm[Hg] [facility] Diastolic blood pressure 2022-11-05 18:18:00 84 mm[Hg] [facility] Heart rate 2022-11-05 18:18:00 88 /min [facility] Body temperature 2022-11-05 18:18:00 37.28 [place] [facility] Respiratory rate 2022-11-05 18:18:00 22 /min [facility] Body height 2022-11-05 18:18:00 152.4 cm [facility] Body weight 2022-11-05 18:18:00 61.236 kg [facility] BMI 2022-11-05 18:18:00 26.37 kg/m2 [facility] Oxygen saturation in Arterial blood by Pulse oximetry 2022-11-05 18:18:00 98 /min [facility] Systolic blood pressure 2022-06-05 03:35:00 132 mm[Hg] [facility] Diastolic blood pressure 2022-06-05 03:35:00 82 mm[Hg] [facility] Heart rate 2022-06-05 03:35:00 91 /min [facility] Body temperature 2022-06-05 03:35:00 37.28 [place] [facility] Respiratory rate 2022-06-05 03:35:00 16 /min [facility] Body height 2022-06-05 03:35:00 154.9 cm [facility] Body weight 2022-06-05 03:35:00 56.7 kg [facility] BMI 2022-06-05 03:35:00 23.62 kg/m2 [facility] Oxygen saturation in Arterial blood by Pulse oximetry 2022-06-05 03:35:00 100 /min [facility] Systolic blood pressure 2022-05-27 21:48:00 125 mm[Hg] [facility] Diastolic blood pressure 2022-05-27 21:48:00 85 mm[Hg] [facility] Heart rate 2022-05-27 21:48:00 87 /min [facility] Body temperature 2022-05-27 21:48:00 36.72 [place] [facility] Respiratory rate 2022-05-27 21:48:00 17 /min [facility] Body height 2022-05-27 21:48:00 154.9 cm [facility] Body weight 2022-05-27 21:48:00 57.516 kg [facility] BMI 2022-05-27 21:48:00 23.96 kg/m2 [facility] BP Diastolic 2022-04-24 00:00:00 73 mm[Hg] [facility] Height 2022-04-24 00:00:00 60 [in_i] [facility] BMI (Body Mass Index) 2022-04-24 00:00:00 24.5 kg/m2 [facility] BP Systolic 2022-04-24 00:00:00 121 mm[Hg] [facility] Body Weight 2022-04-24 00:00:00 2009.6 [oz_av] [facility] Systolic blood pressure 2022-04-17 06:00:00 125 mm[Hg] [facility] Diastolic blood pressure 2022-04-17 06:00:00 73 mm[Hg] [facility] Heart rate 2022-04-17 06:00:00 73 /min [facility] Body temperature 2022-04-17 06:00:00 37 [place] [facility] Respiratory rate 2022-04-17 06:00:00 20 /min [facility] Oxygen saturation in Arterial blood by Pulse oximetry 2022-04-17 06:00:00 99 /min [facility] Body height 2022-04-17 04:56:00 154.9 cm [facility] Body weight 2022-04-17 04:56:00 56.7 kg [facility] BMI 2022-04-17 04:56:00 23.62 kg/m2 [facility] BP Diastolic 2021-06-25 00:00:00 82 mm[Hg] [facility] Height 2021-06-25 00:00:00 60.8 [in_i] [facility] BMI (Body Mass Index) 2021-06-25 00:00:00 23 kg/m2 [facility] BP Systolic 2021-06-25 00:00:00 137 mm[Hg] [facility] Body Weight 2021-06-25 00:00:00 1936 [oz_av] [facility] Systolic blood pressure 2020-03-14 15:31:00 120 mm[Hg] [facility] Diastolic blood pressure 2020-03-14 15:31:00 77 mm[Hg] [facility] Heart rate 2020-03-14 15:31:00 78 /min [facility] Body temperature 2020-03-14 15:31:00 36.94 [place] [facility] Respiratory rate 2020-03-14 15:31:00 18 /min [facility] Body height 2020-03-14 15:31:00 154.9 [facility] weight 2020-03-14 15:31:00 58.514 kg [facility] BMI 2020-03-14 15:31:00 24.37 kg/m2 [facility] Systolic blood pressure 2019-12-31 20:23:00 125 mm[Hg] [facility] Diastolic blood pressure 2019-12-31 20:23:00 80 mm[Hg] [facility] Heart rate 2019-12-31 20:23:00 77 /min [facility] Body temperature 2019-12-31 20:23:00 36.78 [place] [facility] Respiratory rate 2019-12-31 20:23:00 18 /min [facility] Body height 2019-12-31 20:23:00 154.9 cm [facility] Body weight 2019-12-31 20:23:00 57.879 kg [facility] BMI 2019-12-31 20:23:00 24.11 kg/m2 [facility] Systolic blood pressure 2019-12-17 13:48:00 135 mm[Hg] [facility] Diastolic blood pressure 2019-12-17 13:48:00 91 mm[Hg] [facility] Heart rate 2019-12-17 13:48:00 77 /min [facility] Body temperature 2019-12-17 13:48:00 36.72 Marianne [facility] Respiratory rate 2019-12-17 13:48:00 16 /min [facility] Body height 2019-12-17 13:48:00 157.5 cm [facility] Body weight 2019-12-17 13:48:00 56.79 kg Univ [facility] BMI 2019-12-17 13:48:00 22.90 kg/m2 [facility] Systolic blood pressure 2019-08-25 15:25:00 121 mm[Hg] [place] [facility] Diastolic blood pressure 2019-08-25 15:25:00 81 mm[Hg] [place] [facility] Heart rate 2019-08-25 15:25:00 69 /min [facility] Body temperature 2019-08-25 15:25:00 36.83 Marianne [facility] Respiratory rate 2019-08-25 15:25:00 18 /min [facility] Body height 2019-08-25 15:25:00 157.5 cm [facility] Body weight 2019-08-25 15:25:00 56.246 kg [facility] BMI 2019-08-25 15:25:00 22.68 kg/m2 [facility] Procedures Procedure Date / Time Performed Performing Clinician Source [facility] PATIENT FINANCIAL POLICY 2022-11-19 15:07:41 Doctor Unassigned, [place] [facility] CONSENT/REFUSAL FOR DIAGNOSIS AND TREATMENT 2022-11-05 18:15:33 Doctor Unassigned, [place] [facility] CONSENT/REFUSAL FOR DIAGNOSIS AND TREATMENT 2022-06-05 03:19:45 Doctor Unassigned, [place] [facility] ASSIGNMENT OF BENEFITS 2022-05-27 22:18:44 Docto r Unassigned, [place] [facility] CT ABDOMEN PELVIS W CONTRAST 2022-04-17 05:18:21 Anita Burnham [facility] POCT TEST 2022-04-17 05:13:00 Mary Burnham [facility] LIPASE 2022-04-17 05:04:00 Anita Burnham [facility] COMP. METABOLIC PANEL (95988) 2022-04-17 05:04:00 Anita Burnham [facility] CBC WITH DIFF 2022-04-17 05:04:00 Anita Burnham [facility] PROTHROMBIN TIME / INR 2022-04-17 05:04:00 Alison Burnham [facility] URINALYSIS 2022-04-17 05:04:00 Anita Burnham [facility] NOTICE OF PRIVACY PRACTICES 2022-04-17 04:44:11 Doctor Unassigned, [place] [facility] CONSENT/REFUSAL FOR DIAGNOSIS AND TREATMENT 2022-04-17 04:42:46 Doctor Unassigned, [place] [facility] DISCLOSURE AND CONSENT, MEDICAL AND SURGICAL PROCEDURES 2019-12-31 05:01:00 Doctor Unassigned, [place] [facility] POCT TEST 2019-12-31 00:00:00 Phillip Pope [facility] POCT TEST 2019-12-17 13:50:00 Karo Fernandez [facility] AGREEMENTS AUTHORIZATIONS AND IRREVOCABLE ASSIGNMENTS (FORM 2001) 2019-08-25 05:01:00 Doctor Unassigned, [place] [facility] Plan of Care Planned Activity Planned Date Details Comments Source Diagnostic Test Pending 2021-06-25 00:00:00 CMP, serum or plasma [code = CMP, serum or plasma] [facility] Diagnostic Test Pending 2021-06-25 00:00:00 TSH + T4, serum [code = TSH + T4, serum] [facility] Diagnostic Test Pending 2021-06-25 00:00:00 urinalysis complete, reflex culture [code = urinalysis complete, reflex culture] [facility] Diagnostic Test Pending 2021-06-25 00:00:00 CBC w/ auto diff [code = CBC w/ auto diff] [facility] Diagnostic Test Pending 2021-06-25 00:00:00 lipid panel, serum [code = lipid panel, serum] [facility] Diagnostic Test Pending 2021-06-25 00:00:00 HbA1c (hemoglobin A1c), blood [code = HbA1c (hemoglobin A1c), blood] [facility] Diagnostic Test Pending 2021-06-25 00:00:00 rapid influenza virus A + B and SARS CoV + SARS CoV 2 Ag panel, [place], upper respiratory specimen [code = rapid influenza virus A + B and SARS CoV + SARS CoV 2 Ag panel, [place], upper respiratory specimen] [facility] Instructions [facility] Encounters Start Date/Time End Date/Time Encounter Type Admission Type Attending [facility] Facility Care Department Encounter ID Source 2023-04-24 00:00:00 2023-04-24 00:00:00 Outpatient GC_GCBZW_Ka diyala_S PRIV PRIV [id number] [facility] 2023-04-22 00:00:00 2023-04-22 00:00:00 Outpatient GC_GCBZW_Ka diyala_S PRIV PRIV [id number] [facility] 2023-04-22 00:00:00 2023-04-22 00:00:00 Telephone Nestori rickie [facility] 1.2.840.114 350.1.13.10 4.2.7.2.686 [id number] [facility] 2023-04-05 00:00:00 2023-04-05 00:00:00 Outpatient GC_GCBZW_Ka diyala_S PRIV PRIV [id number] [facility] 2022-11-19 10:30:00 2022-11-19 10:59:58 Outpatient R CARTER-MELODY S, ORESTES CARTER-MELODY S, [facility] [id number] [facility] 2022-11-19 10:30:00 2022-11-19 10:59:58 Office Visit Genevieve-Melody s [facility] 1..840.114 350.1.13.10 4.2.7.2.686 [id number] [facility] 2022-11-19 00:00:00 2022-11-19 00:00:00 Orders Only Doctor Unassigned, [place] [facility] 1..840.114 350.1.13.10 4.2.7.2.686 [id number] [facility] 2022-11-05 13:22:00 2022-11-05 13:40:00 Emergency X JAQUELINE GARCIAMB ERT [id number] [facility] 2022-11-05 13:22:00 2022-11-05 13:40:00 Emergency Jaqueline Garcia [facility] 1.2.840.114 350.1.13.10 4.2.7.2.686 [id number] [facility] 2022-07-19 00:00:00 2022-07-19 00:00:00 Outpatient L_Pena [facility] [id number] [facility] 2022-06-15 00:00:00 2022-06-15 00:00:00 Outpatient L_Pena [facility] [id number] 2022-06-10 00:00:00 2022-06-10 00:00:00 Telephone Jim Eva [facility] 1..840.114 350.1.13.10 4.2.7.2.686 [id number] [facility] 2022-06-04 21:32:00 2022-06-04 22:11:00 Emergency X DHRUV ARELLANO [facility] ERT [id number] [facility] 2022-06-04 21:32:00 2022-06-04 22:11:00 Emergency Dhruv Arellano [facility] 1..840.114 350.1.13.10 4.2.7.2.686 [id number] [facility] 2022-05-27 16:45:00 2022-05-27 17:00:00 Web Site Administrator Visit Pob, Adc Lab Main Yogeshsegun Eva [facility] 1.2.840.114 350.1.13.10 4.2.7.2.686 [id number] [facility] 2022-05-27 16:00:00 2022-05-27 16:12:49 Outpatient R EVA FERNANDEZ [facility] [id number] [facility] 2022-05-27 16:00:00 2022-05-27 16:12:49 [facility] 1.2.840.114 350.1.13.10 4.2.7.2.686 [id number] [facility] 2022-05-27 00:00:00 2022-05-27 00:00:00 Orders Only Doctor Unassigned, [place] [facility] 1.2.840.114 350.1.13.10 4.2.7.2.686 [id number] [facility] 2022-05-11 00:00:00 2022-05-11 00:00:00 Outpatient L_Ankush [facility] [address] [facility] 2022-05-09 00:00:00 2022-05-09 00:00:[address]en Alexandro [facility] 1.2.840.114 350.1.13.10 4.2.7.2.686 [id number] [facility] 2022-04-24 00:00:00 2022-04-24 00:00:00 Outpatient L_Ankush [facility] [address] [facility] 2022-04-24 00:00:00 2022-04-24 00:00:00 Penny Lechuga APRN, MSN, [employer]-: [address], [address], [place] [address] , Ph. [facility] [id number] [facility] 2022-04-16 22:43:00 2022-04-17 00:50:00 Emergency X ANITA BURNHAM [facility] ERT [id number] [facility] 2022-04-16 22:43:00 2022-04-17 00:50:00 Emergency Anita Burnham [facility] .2.840.114 350.1.13.10 4.2.7.2.686 [id number] [facility] 2021-06-25 04:57:00 2021-06-25 04:57:00 Outpatient Francisco Javier [facility] [id number] [facility] 2021-06-25 00:00:00 2021-06-25 00:00:00 Liliane Calhoun, VICE PRESIDENT [employer]IDENTIAL [employer]: [address], [place] [address] , Ph. [facility] [id number] [facility] 2020-06-21 09:45:00 2020-06-21 09:45:00 Outpatient Eliu FERNANDEZ [facility] [id number] [facility] 2020-06-16 10:00:00 2020-06-16 10:00:00 Outpatient R JIM [facility] [id number] [facility] 2020-04-04 09:30:00 2020-04-04 09:30:00 Outpatient R LATASHA RANKIN [facility] [id number] [facility] 2020-03-14 10:24:38 2020-03-14 10:39:33 Nurse Visit Nurse, [facility] Jim [facility] .2.840.114 350.1.13.10 4.2.7.2.686 [id number] [facility] 2020-03-14 10:30:00 2020-03-14 10:30:00 Outpatient R [facility] [id number] [facility] 2020-03-14 00:00:00 2020-03-14 00:00:00 [facility] 1.2.840.114 350.1.13.10 4.2.7.2.686 [id number] [facility] 2019-12-31 15:05:56 2019-12-31 16:13:40 Office Visit Phillip Pope [facility] 1.2.840.114 350.1.13.10 4.2.7.2.686 [id number] [facility] 2019-12-31 15:00:00 2019-12-31 15:00:00 Outpatient R PHILLIP POPE [facility] [id number] [facility] 2019-12-31 00:00:00 2019-12-31 00:00:00 Orders Only Doctor Unassigned, [place] [facility] 1.2.840.114 350.1.13.10 4.2.7.2.686 [id number] [facility] 2019-12-19 00:00:00 2019-12-19 00:00:00 Case Management Eva Fernandez [facility] 1.2.840.114 350.1.13.10 4.2.7.2.686 [id number] [facility] 2019-12-17 09:21:03 2019-12-17 09:36:03 Web Site Administrator Visit 2, Adc Lab Jim Eva [facility] 1.2.840.114 350.1.13.10 4.2.7.2.686 [id number] [facility] 2019-12-17 08:37:21 2019-12-17 09:11:55 Office Visit Eva Fernandez [facility] 1.2.840.114 350.1.13.10 4.2.7.2.686 [id number] [facility] 2019-12-17 08:30:00 2019-12-17 08:30:00 Outpatient R EVA FERNANDEZ [facility] [id number] [facility] 2019-09-21 09:00:00 2019-09-21 09:00:00 Outpatient R [facility] [id number] [facility] 2019-08-26 00:00:00 2019-08-26 00:00:00 [facility] 1.2840.114 350.1.13.10 4.2.7.2.686 [id number] [facility] 2019-08-25 15:23:20 2019-08-25 15:38:20 Web Site Administrator Visit 2, [facility] 1.20.114 350.1.13.10 4.2.7.2.686 [id number] [facility] 2019-08-25 10:14:24 2019-08-25 10:47:55 [facility] 1.20.114 350.1.13.10 4.2.7.2.686 [id number] [facility] 2019-08-25 09:30:00 2019-08-25 09:30:00 Outpatient R EVA FERNANDEZ [facility] [id number] [facility] 2019-08-25 00:00:00 2019-08-25 00:00:00 Orders Only Doctor Unassigned, [place] [facility] 1.20.114 350.1.13.10 4.2.7.2.686 [id number] [facility] 2019-06-22 00:00:00 2019-06-22 00:00:00 [facility] 1.20.114 350.1.13.10 4.2.7.2.686 [id number] [facility] 2019-06-16 10:30:00 2019-06-16 11:36:54 Outpatient EVA LIM [facility] [id number] [facility] Results Test Description Test Time Test Comments Results Result Co mments Source [facility] 05:34:34* Test Item Value Reference Range Interpretation Comme nts LIPASE (test code = 5931972295) 68 U/L 0-220 Lab Interpretation (test cod e = 68828-0) Normal [facility] / [id number] 05:25:55* Test Item Value Reference Range Interpretation Comme nts PROTIME PATIENT (test code = 5964-2) See_Comment [Automated messa ge] The system which generated this result transmitted reference range: 12.0 - 14.7 Seconds. The reference range was not used to interpret this result as normal/abnormal. INR (test code = 6301-6) Normal INR <1.1; Warfarin Therapeutic range 2.0 to 3.0 or 2.5 to 3.5, depending upon the indications. Lab Interpretation (test code = 53175-3) Normal [facility] [id number] 05:18:31* Test Item Value Reference Range Interpretation Comme nts WBC (test code = 6690-2) See_Comment H [Automated messa ge] The system which generated this result transmitted reference range: 4.30 - 11.10 10*3/?L. The reference range was not used to interpret this result as normal/abnormal. RBC (test code = 789-8) See_Comment [Automated messa ge] The system which generated this result transmitted reference range: 3.93 - 5.25 10*6/?L. The reference range was not used to interpret this result as normal/abnormal. HGB (test code = 718-7) 13.1 g/dL 11.6-15.0 HCT (test code = 4544-3) 37.9 % 35.7-45.2 MCV (test code = 787-2) 83.8 fL 80.6-95.5 MCH (test code = 785-6) 29.0 pg 25.9-32.8 MCHC (test code = 786-4) 34.6 g/dL 31.6-35.1 RDW-SD (test code = 27878-0) 37.1 fL 39.0-49.9 L RDW-CV (test code = 788-0) 12.3 % 12.0-15.5 PLT (test code = 777-3) See_Comment [Automated [employer] ge] The system which generated this result transmitted reference range: 166 - 358 10*3/?L. The reference range was not used to interpret this result as normal/abnormal. MPV (test code = 18148-0) 11.8 fL 9.5-12.9 NRBC/100 WBC (test code = 5477295411) See_Comment [Automated [employer] ssage] The system which generated this result transmitted reference range: 0.0 - 10.0 /100 WBCs. The reference range was not used to interpret this result as normal/abnormal. NRBC x10^3 (test code = 0057539886) See_Comment [Automated [employer] ge] The system which generated this result transmitted reference range: 10*3/?L. The reference range was not used to interpret this result as normal/abnormal. GRAN MAT (NEUT) % (test code = 770-8) 77.2 % IMM GRAN % (test code = 4323141553) 0.40 % LYMPH % (test code = 736-9) 15.2 % MONO % (test code = 5905-5) 5.9 % EOS % (test code = 713-8) 0.8 % BASO % (test code = 706-2) 0.5 % GRAN MAT x10^3(ANC) (test code = 7792366031) 9.95 10*3/uL 1.88-7.09 H IMM GRAN x10^3 (test code = 9531734810) 0.05 10*3/uL 0.00-0.06 LYMPH x10^3 (test code = 731-0) 1.95 10*3/uL 1.32-3.29 MONO x10^3 (test code = 742-7) 0.76 10*3/uL 0.33-0.92 EOS x10^3 (test code = 711-2) 0.10 10*3/uL 0.03-0.39 BASO x10^3 (test code = 704-7) 0.06 10*3/uL 0.01-0.07 Lab Interpretation (test code = 73278-6) Abnormal [facility] [id number] 05:13:00* Test Item Value Reference Range Interpretation Comme nts POCT PREG (test code = 1605) negative On board controls acceptable with C Line (test code = 3574) present POCT PREG LOT # (test code = 3575) [id number] POCT PREG TEST DATE ( test code = 3576) 09/06/2022 Lab Interpretation (test cod e = 65458-1) Normal [facility] virus A + B and SARS CoV + SARS CoV 2 Ag panel, [place], upper respiratory [id number] 15:42:00* Test Item Value Reference Range Interpretation Comme [facility] RAPID SARS COV (test code = RAPID SARS COV) negative RAPID FLU A (test code = RAP ID FLU A) negative RAPID FLU B (test code = RAP ID FLU B) negative [facility] W Auto Differential panel - [id number] 02:07:00 * Test Item Value Reference Range Interpretation Comme [facility] white blood count (test code = white blood count) 9.1 K/uL 4.0-11.5 red blood count (test code = red blood count) 5.09 M/uL 3.80-5.20 hemoglobin (test code = hemoglobin) 14.5 g/dL 10.5-15.7 hematocrit (test code = hematocrit) 44.4 % 34.0-50.0 MCV [Entitic volume] (test c ode = 72206-6) 87.2 fL 86.0-100.0 mean corpuscular hemoglobin (test code = mean corpuscular hemoglobin) 28.5 pg 26.2-33.4 mean corpuscular HGB conc (t est code = mean corpuscular HGB conc) 32.7 g/dL 30.0-34.0 red cell distribution width (test code = red cell distribution width) 12.3 % 12.0-15.5 platelet count (test code = platelet count) 250 K/uL 165-450 mean platelet volume (test c ode = mean platelet volume) 11.9 fL 9.4-12.6 Segmented neutrophils/100 leukocytes in Blood (test code = 54974-8) 69.2 % 44.4-80.1 Immature granulocytes [#/vol ume] in Blood (test code = 17161-1) 0.03 K/uL 0.00-0.03 lymphocyte% (test code = lymphocyte%) 21.0 % 10.0-50.0 mono % (test code = mono %) 5.5 % 3.6-12.0 eos % (test code = eos %) 3.2 % 0.0-5.4 Basophils/100 leukocytes in Unspecified specimen (test code = 83018-8) 0.8 % 0.1-1.2 Band form neutrophils [#/vol ume] in Blood (test code = 36246-0) 6.33 K/uL 1.56-6.13 H Lymphocytes [#/volume] in Unspecified specimen by Automated count (test code = 81604-7) 1.92 K/uL 1.18-3.74 mono # (test code = mono #) 0.50 K/uL 0.24-0.86 eos # (test code = eos #) 0.29 K/uL 0.04-0.36 basophil # (test code = baso omari #) 0.07 K/uL 0.01-0.08 NRBC% (test code = NRBC%) 0 /100 WBC 0-0.2 NRBC# (test code = NRBC#) 0 K/uL [facility] - Serum or [id number] 02:07:00* Test Item Value Reference Range Interpretation Comme nts cholesterol level (test code = cholesterol level) 229 mg/dL 150-200 H triglycerides level (test co de = triglycerides level) 63 mg/dL <150 HDL cholesterol (test code = HDL cholesterol) 70 mg/dL >65 LDL cholesterol direct (test code = LDL cholesterol direct) 139 mg/dL <100 H cholesterol risk ratio (test code = cholesterol risk ratio) 3.271 [facility] W Reflex Culture panel - Urine 2021-06-25 02:07:00* Test Item Value Reference Range Interpretation Comme nts Color of Urine by Auto (test code = 96200-8) yellow Appearance of Urine (test co de = 5767-9) SL cloudy clear A Glucose [Presence] in Urine by Automated test strip (test code = 53395-4) negative negative Bilirubin.total [Mass/volume ] in Urine (test code = 1978-6) negative negative Ketones [Mass/volume] in Uri ne by Automated test strip (test code = 17352-1) =1 negative H Specific gravity of Urine by Automated test strip (test code = 17811-9) 1.031 1.003-1.030 H blood urine (test code = blo od urine) negative negative pH of Urine (test code = 2756-5) 5.500 5-9 protein urine (UA) (test cod e = protein urine (UA)) trace negative Urobilinogen [Presence] in U rine (test code = 27235-2) normal 0.2-1.0 Nitrite [Presence] in Urine by Test strip (test code = 5802-4) negative negative Leukocyte esterase [Presence ] in Urine by Automated test strip (test code = 72730-7) =4 negative H Erythrocytes [#/volume] in U rine by Automated count (test code = 798-9) =11-14 0-5 H Leukocytes [#/area] in Urine sediment by Automated count (test code = 14742-7) =30-49 0-5 H Epithelial cells [Presence] in Urine sediment by Light microscopy (test code = 32656-9) =11-14 0-5 Bacteria identified in Urine by Culture (test code = 630-4) large (3 none detect H Casts [#/area] in Urine sedi ment by Automated count (test code = 41754-7) =11-14 none detect H urine culture added? (test c ode = urine culture added?) yes trichomonas, urine (test cod e = trichomonas, urine) =3-4 none seen H Pathologic casts [Presence] in Urine by Automated (test code = 98150-6) none seen none detect [facility] GroupBacteria identified in Urine by [id number] 02:07:00Bacteria Ur CultMatagorda Medical GroupHemoglobin A1c [Mass/volume] in [id number] 00:00:00* Test Item Value Reference Range Interpretation Comme nts Hemoglobin A1c [Mass/volume] in Blood (test code = 23167-1) 5.1 % 4.0-6.0 [facility] CenterCom[facility] metabolic 2000 panel - Serum or Plasma 2021-06-25 00:00:00* Test Item Value Reference Range Interpretation Comme nts glucose (test code = glucose) 87 mg/dL 74-106 Urea nitrogen [Mass/volume] in Serum or Plasma (test code = 3094-0) 12 mg/dL 6-20 osmolality calculated,serum (test code = osmolality calculated,serum) 282 mOsm/kg 280-300 creatinine (test code = creatinine) 0.85 mg/dL 0.50-0.90 glomerular filtration rate ( test code = glomerular filtration rate) >60.00 Urea nitrogen/Creatinine [Ma ss Ratio] in Serum or Plasma (test code = 3097-3) 14.1 12.0-20.0 sodium level (test code = so dium level) 142 mmol/L 135-145 Potassium [Moles/volume] in Body fluid (test code = 2821-7) 4.4 mmol/L 3.5-5.2 chloride level (test code = chloride level) 106 mmol/L 98-108 CO2 (test code = CO2) 24 mmol/L 21-32 anion gap (test code = anion gap) 16.4 mEq/L 12.0-20.0 calcium level (test code = calcium level) 10.0 mg/dL 8.6-10.0 total protein (test code = t otal protein) 8.3 g/dL 6.6-8.7 albumin (test code = albumin) 5.1 g/dL 3.5-5.2 globulin (test code = globulin) 3.2 g/dL 1.5-4.5 A/G ratio (test code = A/G ratio) 1.6 >1.0 bilirubin,total (test code = bilirubin,total) 0.3 mg/dL 0.0-1.2 AST/SGOT (test code = AST/SGOT) 21 U/L 15-32 Alanine aminotransferase [Enzymatic activity/volume] in Serum or Plasma (test code = 1742-6) 19 U/L 0-33 Alkaline phosphatase [Enzyma tic activity/volume] in Serum or Plasma (test code = 6768-6) 93 U/L 35-105 [facility] [Units/volume] in Serum or [id number] 00:00:00* Test Item Value Reference Range Interpretation Comme nts Thyrotropin [Units/volume] i n Serum or Plasma (test code = 3016-3) 0.73 uIU/mL 0.36-3.74 [facility] GroupThyroxine (T4) [Mass/volume] in Serum or [id number] 00:00:00* Test Item Value Reference Range Interpretation Comme nts T4 (test code = T4) 10.4 ug/dL 4.5-11.7 [facility] [id number] 20:40:00* Test Item Value Reference Range Interpretation Comme nts POCT PREG (test code = 1605) Negative On board controls acceptable with C Line (test code = 3574) Yes POCT PREG LOT # (test code = 3575) POCT PREG TEST DATE ( test code = 3576) [facility] [id number] 20:40:00* Test Item Value Reference Range Interpretation Comme nts POCT PREG (test code = 1605) Negative On board controls acceptable with C Line (test code = 3574) Yes POCT PREG LOT # (test code = 3575) POCT PREG TEST DATE ( test code = 3576) [facility] [id number] 13:50:00* Test Item Value Reference Range Interpretation Comme nts POCT PREG (test code = 1605) Negative On board controls acceptable with C Line (test code = 3574) Yes POCT PREG LOT # (test code = 3575) POCT PREG TEST DATE ( test code = 3576) [facility] [id number] 13:50:00* Test Item Value Reference Range Interpretation Comme nts POCT PREG (test code = 1605) Negative On board controls acceptable with C Line (test code = 3574) Yes POCT PREG LOT # (test code = 3575) POCT PREG TEST DATE ( test code = 3576) [facility]
[2023-07-25 22:56] LABS: Hematocrit 42.8 % (36.0-45.0); Lymphocytes % 26.1 % (15.3-44.8); MPV 9.7 fL (7.6-11.3); Platelets 213 thou/uL (152-406); RBC Red Blood Cell Count 4.92 M/uL (3.86-4.86)
[2023-07-25 23:17] LABS: Albumin 3.9 g/dL (3.4-5.0); Bilirubin Total 0.4 mg/dL (0.2-1.0); Potassium 3.4 mEq/L (3.5-5.1); Protein, Total 7.3 g/dL (6.4-8.2)
--- NOTE | 2023-07-26 | ER ---
Nurse's Notes [facility] Name: Byron Trinidda Age: 23 yrs Sex: Female : 2000 Arrival Date: 07/25/2023 Time: 22:32 Bed 20 Private MD: Diagnosis: Allergic Reaction Presentation: 07/25 22:57 Chief complaint: Patient states: sudden onset of swelling in the throat/glands. unknown rv reason. with hx of swelling glands in the past. speech clear. no SOB/. Coronavirus screen: At this time, the client does not indicate any symptoms associated with coronavirus-19. Ebola Screen: No symptoms or risks identified at this time. Initial Sepsis Screen: Does the patient meet any 2 criteria? No. Patient's initial sepsis screen is negative. Does the patient have a suspected source of infection? No. Patient's initial sepsis screen is negative. Risk Assessment: Do you want to hurt yourself or someone else? Patient reports no desire to harm self or others. Onset of symptoms was July 25, 2023. 22:57 Method Of Arrival: Ambulatory rv 22:57 Acuity: DILAN 3 rv Triage Assessment: 22:57 General: Appears comfortable. rv Historical: - Allergies: 22:56 No Known Allergies; rv - PMHx: 22:56 Asthma; rv - PSHx: 22:56 None; rv - Immunization history:: Adult Immunizations up to date, Client reports receiving the 2nd dose of the Covid vaccine, [employer]fizer Last tetanus immunization: < 10 years ago Flu vaccine is up to date. - Social history:: Smoking status: Reported history of juuling and/or vaping. Patient uses street drugs, marijuana, Smoking status: Patient denies any tobacco usage or history of. Screenin:56 [facility] ED Fall Risk Assessment (Adult) History of falling in the last 3 months, rv including since admission No falls in past 3 months (0 pts) Score/Fall Risk Level 0 - 2 = Low Risk Oriented to surroundings, Maintained a safe environment, Educated pt \T\ family on fall prevention, incl call for assistance when getting out of bed, Assessed \T\ reinforced patient's understanding of fall precautions. Abuse screen: Denies threats or abuse. Denies injuries from another. Nutritional screening: No deficits noted. Tuberculosis screening: No symptoms or risk factors identified. Assessment: 22:56 General: Appears comfortable, Behavior is calm, cooperative. Pain: Denies pain. Neuro: rv Level of Consciousness is awake, alert, obeys commands, Oriented to person, place, time, situation. Cardiovascular: Capillary refill < 3 seconds Patient's skin is warm and dry. Respiratory: Airway is patent Respiratory effort is even, unlabored, Breath sounds are clear bilaterally. GI: No signs and/or symptoms were reported involving the gastrointestinal system. : No signs and/or symptoms were reported regarding the genitourinary system. 07/26 00:20 Reassessment: Patient states feeling better. Patient states symptoms have improved. rv Vital Signs: 07/25 22:57 BP 131 / 86; Pulse 110; Resp 20; Temp 98; Pulse Ox 99% ; rv 23:46 BP 114 / 60; Pulse 68; ec2 07/26 00:20 BP 120 / 66; Pulse 65; Resp 16; Temp 98; Pulse Ox 99% ; rv Ennis Coma Score: 00:20 Eye Response: spontaneous(4). Motor Response: obeys commands(6). Verbal Response: rv oriented(5). Total: 15. ED Course: 07/25 22:33 Patient arrived in ED. im 22:37 Kevin Lala MD is Attending Physician. ec2 22:45 Inserted saline lock: 20 gauge in right forearm, using aseptic technique. Blood rv collected. 22:56 Patient has correct armband on for positive identification. Client placed on continuous rv cardiac and pulse oximetry monitoring. NIBP monitoring applied. 22:56 No provider procedures requiring assistance completed. rv 22:59 Triage completed. rv 22:59 Arm band placed on right wrist. rv 07/26 00:20 Vito Slater, EDVIN is Primary Nurse. rv 00:20 IV discontinued, intact, bleeding controlled, No redness/swelling at site. Pressure rv dressing applied. Administered Medications: 07/25 22:55 Drug: NS 0.9% IV 1000 ml IV at 1 bolus Per protocol; 1000 mL bolus Route: IV; Rate: 1 rv bolus; Site: right forearm; 07/26 00:21 Follow up: IV Status: Completed infusion; IV Intake: 1000ml rv 07/25 22:55 Drug: Decadron - Dexamethasone IVP 10 mg IVP once Route: IVP; Site: right forearm; rv 07/26 00:21 Follow up: Response: No adverse reaction rv 07/25 22:55 Drug: diphenhydrAMINE IVP 25 mg IVP once Route: IVP; Site: right forearm; rv 07/26 00:20 Follow up: Response: No adverse reaction; Marked relief of symptoms rv Medication: 07/25 22:56 VIS not applicable for this client. rv Intake: 07/26 00:21 IV: 1000ml; Total: 1000ml. rv Outcome: 07/25 23:59 Discharge ordered by ec2 07/26 00:21 Discharged to home ambulatory, rv Condition: good Discharge instructions given to patient, Instructed on discharge instructions, follow up and referral plans. Demonstrated understanding of instructions, follow-up care, 00:21 Patient left the ED. rv Signatures: Vito Slater RN RN rv Aaliyah Long RN RN pf1 Carina العلي Edwin, MD MD ec2 Corrections: (The following items were deleted from the chart) 07/25 22:56 22:56 PSHx: Unable to Obtain; rv rv
--- NOTE | 2023-07-26 | EDPHYS ---
Physician Documentation [facility] Name: Byron Trinidad Age: 23 yrs Sex: Female : 2000 Arrival Date: 07/25/2023 Time: 22:32 Bed 20 Private MD: ED Physician Keivn Lala HPI: 07/25 22:42 This 23 yrs old Female presents to ER via Unassigned with complaints of ec2 Allergic Reaction. 22:42 Patient arrives today for evaluation of possible allergic reaction. States that she ec2 noticed some facial swelling, no rashes, no difficulty breathing. Reports no new foods or lotions or creams or detergents. Reports no previous similar symptoms.. Historical: - Allergies: 22:56 No Known Allergies; rv - PMHx: 22:56 Asthma; rv - PSHx: 22:56 None; rv - Immunization history:: Adult Immunizations up to date, Client reports receiving the 2nd dose of the Covid vaccine, [employer] Last tetanus immunization: < 10 years ago Flu vaccine is up to date. - Social history:: Smoking status: Reported history of juuling and/or vaping. Patient uses street drugs, marijuana, Smoking status: Patient denies any tobacco usage or history of. ROS: 22:42 Constitutional: as per hpi ec2 Exam: 22:42 Constitutional: GEN: NAD Head: atraumatic Eyes: EOMI Ears: External ears are normal. ec2 Face without marked swelling, no oropharyngeal swelling, no stridor, managing secretions well CV: regular rate LUNGS: no respiratory distress, no wheezes, rales, or rhonchi ABD: non-distended SKIN: no evidence of rashes MSK: no evidence of trauma NEURO: moves all extremities equally Vital Signs: 22:57 BP 131 / 86; Pulse 110; Resp 20; Temp 98; Pulse Ox 99% ; rv 23:46 BP 114 / 60; Pulse 68; ec2 07/26 00:20 BP 120 / 66; Pulse 65; Resp 16; Temp 98; Pulse Ox 99% ; rv Andre Coma Score: 00:20 Eye Response: spontaneous(4). Motor Response: obeys commands(6). Verbal Response: rv oriented(5). Total: 15. MDM: 07/25 22:40 Patient medically screened. ec2 22:42 ED course: patient arrives today for evaluation of possible allergic reaction. ec2 Examination remarkable for well-appearing nontoxic individual is phonating well without evidence of significant airway obstruction. Will obtain lab work, treat the patient with steroids, fluid and reassess the patient. Considered allergic reaction, low suspicion for cellulitis, will suspicion for bacteremia.. 23:24 Data reviewed: vital signs. ED course: CBC reassuring, metabolic profile with slight ec2 hypokalemia.. 23:59 ED course: On reassessment patient with resolution of symptoms. Will discharge home. ec2 Return precautions given.. 07/25 22:41 Order name: CBC with Diff; Complete Time: 23:24 ec2 07/25 22:41 Order name: CMP; Complete Time: 23:24 ec2 Administered Medications: 22:55 Drug: NS 0.9% IV 1000 ml IV at 1 bolus Per protocol; 1000 mL bolus Route: IV; Rate: 1 rv bolus; Site: right forearm; 07/26 00:21 Follow up: IV Status: Completed infusion; IV Intake: 1000ml rv 07/25 22:55 Drug: Decadron - Dexamethasone IVP 10 mg IVP once Route: IVP; Site: right forearm; rv 07/26 00:21 Follow up: Response: No adverse reaction rv 07/25 22:55 Drug: diphenhydrAMINE IVP 25 mg IVP once Route: IVP; Site: right forearm; rv 07/26 00:20 Follow up: Response: No adverse reaction; Marked relief of symptoms rv Disposition Summary: 07/25/23 23:59 Discharge Ordered Notes: Location: Home ec2 Condition: Stable ec2 Diagnosis - Allergic Reaction ec2 Followup: ec2 - With: Private Physician - When: - Reason: Re-evaluation by your physician Discharge Instructions: - Discharge Summary Sheet ec2 - Allergies, Adult ec2 Forms: - Medication Reconciliation Form ec2 - Thank You Letter ec2 - Antibiotic Education ec2 - Prescription Opioid Use ec2 - Patient Portal Instructions ec2 - Leadership Thank You Letter ec2 Signatures: Dispatcher [employer] Vito Stephens RN RN rv Aaliyah Long RN RN pf1 Kevin Lala MD MD ec2 Corrections: (The following items were deleted from the chart) 07/25 22:56 22:56 PSHx: Unable to Obtain; rv rv
[2023-07-26 00:52] VITALS: BP 120/66; TEMP 98; O2SAT 99
== END ==
LOC: ER 22:32
DX: R22.9 Localized swelling, mass and lump, unspecified (principal)
CPT/HCPCS: 96361; 85025; 36415; 80053; 96375; 96374; 99284; J1100; J1200; J7030

== ENCOUNTER 2024-06-30 15:12 | Emergency (ER) | payer OTHER ==
--- OUTSIDE RECORDS SUMMARY | 2024-06-30 15:15 | XMS REPORT | Continuity of Care Document ---
Author Name Unknown Address [address] [facility] [address] [place] [address] [facility] thconnect Address [address] [facility] [place] [address] Care Team Providers Care Electric Stove Installer Name Role Phone PCP, PATIENT DOES NOT HAVE A Primary Care Physic alejandra Unavailable ANUP EMANUEL Attending Clinician Unavailable Orestes Bunn MD Attending Clinician + [phone] GC_GCBZW_Kadiyala_S Attending Clinician Unavaila ORESTES Mayers Attending Clinician Unahelen lopez Doctor Unassigned, [place] Attending Clinician U JAQUELINE Gaming Attending Clinician Unavailab Jaqueline Lares DO Attending Clinician [phone] ANNIE WATERS Attending Clinician Unavailable L_Ankush Attending Clinician Unavailable Eva Fernandez PA-C Attending Clinician [phone] DRHUV ARELLANO Attending Clinician Unavailable Dhruv Arellano MD Attending Clinician [phone] Pob, [facility] Main Attending Clinician UnavailEVA Su Attending Clinician Unavailable Phillip Pope MD Attending Clinician [phone] ANITA BURNHAM Attending Clinician Unavailable Anita Kamara Attending Clinician [phone] Francisco Javier Attending Clinician Unavailable LATASHA RANKIN Attending Clinician Unavailable Nurse, [facility] Attending Clinician Un available POPE, PHILLIP CAM Attending Clinician Unavailable 2, [facility] Attending Clinician Unavailable GC_GCBZW_Kadiyala_S Admitting Clinician Unavaila ble L_Pena Admitting Clinician Unavailable ANITA BURNHAM Admitting Clinician Unavailable Francisco Javier Admitting Clinician Unavailable Payers Payer Name Policy Type Policy Number Effective Date Expirati on Date Source CIGNA II [id number] 2020 00:00:00 [employer] [id number] 2020 00:00:00 [place] AEUppidy [id number] 2018 00:00:00 Problems Condition Name Condition Details Condition Category Status Onset Date Resolution Date Last Treatment Date Treating Clinician Comments Source Chlamydial infection Chlamydial Infection Problem Active 2023-06 00:00: 00 [facility] Nicotine dependence Nicotine Dependence Problem Active 2023-06 00:00: 00 [facility] Serum cholestero l above reference range Serum Cholestero l above Reference Range Problem Active 2023-06 00:00: 00 [facility] Herpes simplex Herpes Simplex Problem Active 2023-06 00:00: 00 [facility] Genital herpes simplex Genital Herpes Simplex Problem Active 2022-06 00:00: 00 [facility] Sialoadeni tis Sialoadeni tis Problem Active 2021-06 00:00: 00 [facility] Sialolithi asis Sialolithi asis Problem Active 2021-06 00:00: 00 [facility] Herpetic vulvovagin itis Herpetic Vulvovagin itis Problem Active 09-13 00:00: 00 [facility] Candidiasi s of vagina Candidiasi s of Vagina Problem Active 08-17 00:00: 00 [facility] Irregular periods Irregular Periods Problem Active 08-17 00:00: 00 [facility] Surveillan ce of contracept ion Surveillan ce of Contracept ion Problem Active 08-17 00:00: 00 [facility] Psychosexu al counseling Psychosexu al Counseling Problem Active 08-17 00:00: 00 [facility] Venereal disease screening Venereal Disease Screening Problem Active 08-17 00:00: 00 [facility] Medical Trichomona l vaginitis Trichomona l Vaginitis Problem Active 1-18 00:00: 00 [facility] Nexplanon in place Nexplanon in place Disease Active 724 00:00: 00 [facility] Right ankle pain Right ankle pain Disease Active 2015-06 0-04 00:00: 00 [facility] Allergies, Adverse Reactions, Alerts Allergy Name Allergy Type Status Severity Reaction(s) Onset Date Inactive Date Treating Clinician Comments Source NO KNOWN ALLERGIE S Drug Class Active [facility] Social History Social Habit Start Date Stop Date Quantity Comments Source [facility] intake 2022-11-19 00:00:00 2022-11-19 00:00:00 Current non-drinker of alcohol (finding) [facility] Tobacco use and exposure 2022-11-19 00:00:00 2022-11-19 00:00:00 Smokeless tobacco non-user [facility] Exposure to SARS-CoV-2 (event) 2022-10-26 00:00:00 2022-11-05 13:21:00 Not sure [facility] History of Social function 2020-01-12 00:00:00 2020-01-12 00:00:00 [facility] Sex Assigned At 2002 00:00:00 2000 00:00:00 [facility] Smoking Status Start Date Stop Date Source Current Some Day Smoker [facility] Never smoked tobacco [facility] Medications Ordered Medication Name Filled Medication Name Start Date Stop Date Current Medication? Ordering Clinician Indication Dosage Frequency Signature (SIG) Comments Components Source etonogestre L (NEXPLANON) implant 68 mg 11-19 16:45: 00 11-19 15:59 :00 No [id number] 68mg [facility] IBUPROFEN ORAL 11-19 10:29: 37 Yes Take by mouth. [facility] clindamycin 300 mg capsule 2021-06 2-27 00:00: 00 06-15 05:59 :00 No [id number] 300mg Take 1 capsule by mouth 4 (four) times daily for 10 days. [facility] naproxen 500 mg tablet 2021-06 2- 00:00: 00 06-15 05:59 :00 No [id number] 500mg Take 1 tablet by mouth in the morning and 1 tablet in the evening. Take with meals. Do all this for 10 days. [facility] naproxen sodium 220 mg tablet 2021-0619 16:01: 45 Yes 220mg Take 220 mg by mouth 2 (two) times daily with meals. [facility] iopamidol (ISOVUE 370-500 mL) injection 75 mL 2021-06 06:00: 00 04-17 06:00 :00 No [id number] 75mL 75 mL, Intravenou s, ONCE, 1 dose, On Fri04/17/22 at 0000, Routine [facility] NaCl 0.9% (NS) bolus infusion 1,000 mL 2021-06 06:00: 00 04-17 06:47 :00 No 1000mL at 999 mL/hr, 1,000 mL, IV Infusion, ONCE, 1 dose, On Fri04/17/22 at 0000, HUDSON [facility] cefTRIAXone (ROCEPHIN) 1,000 mg in NaCl 0.9% (NS) 50 mL MINI-BAG 2021-06 05:45: 00 04-17 06:05 :00 No 1000mg 1,000 mg, IV Piggyback, ONCE, 1 dose, On Fri04/16/22 at 2345, Administer over 30 Minutes, 50 mL
Reas on for Anti-Infec tive: Documented Infection< br>Documen ashley Infection Site: Urine
D uration of Therapy: 7 days [facility] ondansetron (ZOFRAN (PF)) injection 4 mg 2021-06 05:15: 00 04-17 05:07 :00 No 4mg 4 mg, Slow IV Push, ONCE, 1 dose, On Fri04/16/22 at 2315, HUDSON [facility] ketorolac (TORADOL) injection 30 mg 2021-06 05:10: 00 04-17 05:11 :00 No 30mg 30 mg, Slow IV Push, ONCE, 1 dose, On Fri04/16/22 at 2315, Routine [facility] ondansetron 4 mg disintegrat ing tablet 2021-06 00:00: 00 Yes [id number] 4mg Take 1 tablet by mouth every 8 (eight) hours as needed for Nausea and Vomiting (N/V). [facility] Nexplanon Nexplanon 2021-06 00:00: 00 No Nexplanon [facility] etonogestre l (NEXPLANON) implant 68 mg 12-31 00:45: 00 12-30 23:38 :00 No 68mg [facility] metroNIDAZO LE 500 mg tablet 12-18 00:00: 00 12-19 04:59 :00 No [id number] 2000mg Take 4 tablets by mouth once now for 1 dose. [facility] metroNIDAZO LE 500 mg tablet 08-25 00:00: 00 Yes [id number] 500mg Take 1 tablet by mouth every 12 (twelve) hours. [facility] naproxen sodium (ALEVE) 220 mg tablet 2015-06 20:46: 14 Yes 220mg Take 220 mg by mouth 2 (two) times daily with meals. [facility] naproxen sodium (ALEVE) 220 mg tablet 2015-06 15:46: 14 Yes 220mg Take 220 mg by mouth 2 (two) times daily with meals. [facility] cefdinir 300 mg capsule TAKE 1 CAPSULE BY MOUTH EVERY 12 HOURS FOR 10 DAYS cefdinir 300 mg capsule TAKE 1 CAPSULE BY MOUTH EVERY 12 HOURS FOR 10 DAYS No cefdinir 300 mg capsule TAKE 1 CAPSULE BY MOUTH EVERY 12 HOURS FOR 10 DAYS [facility] cephalexin 500 mg capsule Take 1 capsule every 6 hours by oral route for 10 days. cephalexin 500 mg capsule Take 1 capsule every 6 hours by oral route for 10 days. No 1capsul e(s) Q6H cephalexin 500 mg capsule Take 1 capsule every 6 hours by oral route for 10 days. [facility] metronidazo le 500 mg tablet Take 4 tablets by oral route. metronidazo le 500 mg tablet Take 4 tablets by oral route. No 4 metronidaz ole 500 mg tablet Take 4 tablets by oral route. [facility] Nexplanon Nexplanon No Nexplanon [facility] Vital Signs Vital Name Observation Time Observation Value Comments S ource BP Diastolic 2024-05-26 00:00:00 62 mm[Hg] [facility] Height 2024-05-26 00:00:00 62 [in_i] [facility] BMI (Body Mass Index) 2024-05-26 00:00:00 24.2 kg/m2 [facility] Body Weight 2024-05-26 00:00:00 132.2 [lb_av] [facility] BP Systolic 2024-05-26 00:00:00 111 mm[Hg] [facility] BP Diastolic 2024-04-26 00:00:00 87 mm[Hg] [facility] BP Systolic 2024-04-26 00:00:00 119 mm[Hg] [facility] Height 2024-04-26 00:00:00 62 [in_i] [facility] Body Weight 2024-04-26 00:00:00 132.2 [lb_av] [facility] Systolic blood pressure 2022-11-19 15:28:00 121 mm[Hg] [facility] Diastolic blood pressure 2022-11-19 15:28:00 79 mm[Hg] [facility] Heart rate 2022-11-19 15:28:00 73 /min [facility] Body temperature 2022-11-19 15:28:00 36.94 [facility] Body height 2022-11-19 15:28:00 152.4 cm [facility] Body weight 2022-11-19 15:28:00 62.687 kg [facility] BMI 2022-11-19 15:28:00 26.99 kg/m2 [facility] Systolic blood pressure 2022-11-05 18:18:00 130 mm[Hg] [facility] Diastolic blood pressure 2022-11-05 18:18:00 84 mm[Hg] [facility] Heart rate 2022-11-05 18:18:00 88 /min [facility] Body temperature 2022-11-05 18:18:00 37.28 [facility] Respiratory rate 2022-11-05 18:18:00 22 /min [facility] Body height 2022-11-05 18:18:00 152.4 cm [facility] Body weight 2022-11-05 18:18:00 61.236 kg [facility] BMI 2022-11-05 18:18:00 26.37 kg/m2 [facility] Oxygen saturation in Arterial blood by Pulse oximetry 2022-11-05 18:18:00 98 /min [facility] Systolic blood pressure 2022-06-05 03:35:00 132 mm[Hg] [facility] Diastolic blood pressure 2022-06-05 03:35:00 82 mm[Hg] [facility] Heart rate 2022-06-05 03:35:00 91 /min [facility] Body temperature 2022-06-05 03:35:00 37.28 [facility] Respiratory rate 2022-06-05 03:35:00 16 /min [facility] Body height 2022-06-05 03:35:00 154.9 cm [facility] Body weight 2022-06-05 03:35:00 56.7 kg [facility] BMI 2022-06-05 03:35:00 23.62 kg/m2 [facility] Oxygen saturation in Arterial blood by Pulse oximetry 2022-06-05 03:35:00 100 /min [facility] Systolic blood pressure 2022-05-27 21:48:00 125 mm[Hg] [facility] Diastolic blood pressure 2022-05-27 21:48:00 85 mm[Hg] [facility] Heart rate 2022-05-27 21:48:00 87 /min [facility] Body temperature 2022-05-27 21:48:00 36.72 [facility] Respiratory rate 2022-05-27 21:48:00 17 /min [facility] Body height 2022-05-27 21:48:00 154.9 cm [facility] Body weight 2022-05-27 21:48:00 57.516 kg [facility] BMI 2022-05-27 21:48:00 23.96 kg/m2 [facility] BP Diastolic 2022-04-24 00:00:00 73 mm[Hg] [facility] Height 2022-04-24 00:00:00 60 [in_i] [facility] BMI (Body Mass Index) 2022-04-24 00:00:00 24.5 kg/m2 [facility] BP Systolic 2022-04-24 00:00:00 121 mm[Hg] [facility] Body Weight 2022-04-24 00:00:00 2009.6 [oz_av] [facility] Systolic blood pressure 2022-04-17 06:00:00 125 mm[Hg] [facility] Diastolic blood pressure 2022-04-17 06:00:00 73 mm[Hg] [facility] Heart rate 2022-04-17 06:00:00 73 /min [facility] Body temperature 2022-04-17 06:00:00 37 [facility] Respiratory rate 2022-04-17 06:00:00 20 /min [facility] Oxygen saturation in Arterial blood by Pulse oximetry 2022-04-17 06:00:00 99 /min [facility] Body height 2022-04-17 04:56:00 154.9 cm [facility] Body weight 2022-04-17 04:56:00 56.7 kg [facility] BMI 2022-04-17 04:56:00 23.62 kg/m2 [facility] BP Diastolic 2021-06-25 00:00:00 82 mm[Hg] [facility] Height 2021-06-25 00:00:00 60.8 [in_i] [facility] BMI (Body Mass Index) 2021-06-25 00:00:00 23 kg/m2 [facility] BP Systolic 2021-06-25 00:00:00 137 mm[Hg] [facility] Body Weight 2021-06-25 00:00:00 1936 [oz_av] [facility] Systolic blood pressure 2020-03-14 15:31:00 120 mm[Hg] [facility] Diastolic blood pressure 2020-03-14 15:31:00 77 mm[Hg] [facility] Heart rate 2020-03-14 15:31:00 78 /min [facility] Body temperature 2020-03-14 15:31:00 36.94 [facility] Respiratory rate 2020-03-14 15:31:00 18 /min [facility] Body height 2020-03-14 15:31:00 154.9 cm [facility] Body weight 2020-03-14 15:31:00 58.514 kg [facility] BMI 2020-03-14 15:31:00 24.37 kg/m2 [facility] Systolic blood pressure 2019-12-31 20:23:00 125 mm[Hg] [facility] Diastolic blood pressure 2019-12-31 20:23:00 80 mm[Hg] [facility] Heart rate 2019-12-31 20:23:00 77 /min [facility] Body temperature 2019-12-31 20:23:00 36.78 [facility] Respiratory rate 2019-12-31 20:23:00 18 /min [facility] Body height 2019-12-31 20:23:00 154.9 cm [facility] Body weight 2019-12-31 20:23:00 57.879 kg [facility] BMI 2019-12-31 20:23:00 24.11 kg/m2 [facility] Systolic blood pressure 2019-12-17 13:48:00 135 mm[Hg] [facility] Diastolic blood pressure 2019-12-17 13:48:00 91 mm[Hg] [facility] Heart rate 2019-12-17 13:48:00 77 /min [facility] Body temperature 2019-12-17 13:48:00 36.72 [facility] Respiratory rate 2019-12-17 13:48:00 16 /min [facility] Body height 2019-12-17 13:48:00 157.5 cm [facility] Body weight 2019-12-17 13:48:00 56.79 kg [facility] BMI 2019-12-17 13:48:00 22.90 kg/m2 [facility] Systolic blood pressure 2019-08-25 15:25:00 121 mm[Hg] [facility] Diastolic blood pressure 2019-08-25 15:25:00 81 mm[Hg] [facility] Heart rate 2019-08-25 15:25:00 69 /min [facility] Body temperature 2019-08-25 15:25:00 36.83 [facility] Respiratory rate 2019-08-25 15:25:00 18 /min [facility] Body height 2019-08-25 15:25:00 157.5 cm [facility] Body weight 2019-08-25 15:25:00 56.246 kg [facility] BMI 2019-08-25 15:25:00 22.68 kg/m2 [facility] Procedures Procedure Date / Time Performed Performing Clinician Source [facility] PATIENT FINANCIAL POLICY 2022-11-19 15:07:41 Doctor Unassigned, [place] [facility] CONSENT/REFUSAL FOR DIAGNOSIS AND TREATMENT 2022-11-05 18:15:33 Doctor Unassigned, [place] [facility] CONSENT/REFUSAL FOR DIAGNOSIS AND TREATMENT 2022-06-05 03:19:45 Doctor Unassigned, [place] [facility] ASSIGNMENT OF BENEFITS 2022-05-27 22:18:44 Docto r Unassigned, [place] [facility] CT ABDOMEN PELVIS W CONTRAST 2022-04-17 05:18:21 Anita Burnham [facility] POCT TEST 2022-04-17 05:13:00 Mary Burnham [facility] LIPASE 2022-04-17 05:04:00 Anita Burnham [facility] COMP. METABOLIC PANEL ([id number]) 2022-04-17 05:04:00 Anita Burnham [facility] CBC WITH DIFF 2022-04-17 05:04:00 Anita Burnham [facility] PROTHROMBIN TIME / INR 2022-04-17 05:04:00 Alison Burnham [facility] URINALYSIS 2022-04-17 05:04:00 Anita Burnham [facility] NOTICE OF PRIVACY PRACTICES 2022-04-17 04:44:11 Doctor Unassigned, [place] [facility] CONSENT/REFUSAL FOR DIAGNOSIS AND TREATMENT 2022-04-17 04:42:46 Doctor Unassigned, [place] [facility] DISCLOSURE AND CONSENT, MEDICAL AND SURGICAL PROCEDURES 2019-12-31 05:01:00 Doctor Unassigned, [place] [facility] POCT TEST 2019-12-31 00:00:00 Phillip Pope [facility] POCT TEST 2019-12-17 13:50:00 Karo eFrnandez [facility] AGREEMENTS AUTHORIZATIONS AND IRREVOCABLE ASSIGNMENTS (FORM 2001) 2019-08-25 05:01:00 Doctor Unassigned, [place] [facility] Plan of Care Planned Activity Planned Date Details Comments Source Diagnostic Test Pending 2021-06-25 00:00:00 CMP, serum or plasma [code = CMP, serum or plasma] [facility] Diagnostic Test Pending 2021-06-25 00:00:00 TSH + T4, serum [code = TSH + T4, serum] [facility] Diagnostic Test Pending 2021-06-25 00:00:00 urinalysis complete, reflex culture [code = urinalysis complete, reflex culture] [facility] Test Pending 2021-06-25 00:00:00 CBC w/ auto diff [code = CBC w/ auto diff] [facility] Test Pending 2021-06-25 00:00:00 lipid panel, serum [code = lipid panel, serum] [facility] Pending 2021-06-25 00:00:00 HbA1c (hemoglobin A1c), blood [code = HbA1c (hemoglobin A1c), blood] [facility] Pending 2021-06-25 00:00:00 rapid influenza virus A + B and SARS CoV + SARS CoV 2 Ag panel, IA, upper respiratory specimen [code = rapid influenza virus A + B and SARS CoV + SARS CoV 2 Ag panel, IA, upper respiratory specimen] [facility] Instructions [facility] Encounters Start Date/Time End Date/Time Encounter Type Admission Type Attending Clinicians Care Facility Care Department Encounter ID Source 2024-05-26 00:00:00 2024-05-26 00:00:00 SHOAIB Hamilton: [address], [place] [address] , Ph. [facility]_GCBZW_Carole Rose* [id number] [facility] 2024-05-03 00:00:00 2024-05-03 00:00:00 SHOAIB Hamilton: [address], [place] [address] , Ph. [facility] GC_GCBZW_Carole Rose* [id number] [facility] 2024-04-26 00:00:00 2024-04-26 00:00:00 SHOAIB Frazier: [address], [place] [address] , Ph. [facility] GC_GCBZW_Carole thrasher [place]* [id number] [facility] 2023-10-29 16:30:00 2023-10-29 16:30:00 Outpatient ANUP BLACKMON [facility] [id number] [facility] 2023-09-16 00:00:00 2023-09-16 00:00:00 Telephone [facility] [id number] 350.1.13.10 [id number] [id number] [facility] 2023-04-24 00:00:00 2023-04-24 00:00:00 Outpatient GC_GCBZW_Ka diyala_S PRIV PRIV [id number] [facility] 2023-04-22 00:00:00 2023-04-22 00:00:00 Outpatient GC_GCBZW_Ka diyala_S PRIV PRIV [id number] [facility] 2023-04-22 00:00:00 2023-04-22 00:00:00 Telephone Vallejo-Melody s, [facility] 1..840.114 350.1.13.10 4.2.7.2.686 [id number] [facility] 2023-04-05 00:00:00 2023-04-05 00:00:00 Outpatient GC_GCBZW_Ka diyala_S PRIV PRIV [id number] [facility] 2022-11-19 10:30:00 2022-11-19 10:59:58 Outpatient R VALLEJO-MELODY S, ORESTES VALLEJO-MELODY S, ORESTES [facility] [id number] [facility] 2022-11-19 10:30:00 2022-11-19 10:59:58 Office Visit Vallejo-Melody s, Orestes [facility] 1..840.114 350.1.13.10 4.2.7.2.686 [id number] [facility] 2022-11-19 00:00:00 2022-11-19 00:00:00 Orders Only Doctor Unassigned, [place] [facility] 1..840.114 350.1.13.10 4.2.7.2.686 [id number] [facility] 2022-11-05 13:22:00 2022-11-05 13:40:00 Emergency X JAQUELINE GARCIA [facility] [id number] [facility] 2022-11-05 13:22:00 2022-11-05 13:40:00 Emergency Jaqueline Garcia [facility] [id number] 350.1.13.10 4.2.7.2.686 [id number] [facility] 2022-07-19 00:00:00 2022-07-19 00:00:00 Outpatient L_Pena [facility] [id number] [facility] 2022-06-15 00:00:00 2022-06-15 00:00:00 Outpatient L_Pena [facility] [id number] 2022-06-10 00:00:00 2022-06-10 00:00:00 Telephone Jim Eva [facility] 1..840.114 350.1.13.10 4.2.7.2.686 [id number] [facility] 2022-06-04 21:32:00 2022-06-04 22:11:00 Emergency X ARELLANOPAMELADHRUV [facility] ERT [id number] [facility] 2022-06-04 21:32:00 2022-06-04 22:11:00 Emergency Adan Dhruv [facility] 1..840.114 350.1.13.10 4.2.7.2.686 [id number] [facility] 2022-05-27 16:45:00 2022-05-27 17:00:00 Pump Assembler Visit Pob, Adc Lab Main Jim Eva [facility] 1..840.114 350.1.13.10 4.2.7.2.686 [id number] [facility] 2022-05-27 16:00:00 2022-05-27 16:12:49 Outpatient R EVA FERNANDEZ [facility] [id number] [facility] 2022-05-27 16:00:00 2022-05-27 16:12:49 Office Visit Eva [facility] [id number] 350.1.13.10 4.2.7.2.686 [id number] [facility] 2022-05-27 00:00:00 2022-05-27 00:00:00 Orders Only Doctor Unassigned, [place] [facility] 1.2.840.114 350.1.13.10 4.2.7.2.686 [id number] [facility] 2022-05-11 00:00:00 2022-05-11 00:00:00 Outpatient L_Ankuhs [facility] [id number] [facility] 2022-05-09 00:00:00 2022-05-09 00:00:00 Telephone [facility] [id number] 350.1.13.10 4.2.7.2.686 [id number] [facility] 2022-04-24 00:00:00 2022-04-24 00:00:00 Outpatient L_Pena [facility] [address] [facility] [place] [facility] 2022-04-24 00:00:00 2022-04-24 00:00:00 Penny Lechuga APRN, MSN, [employer] ADMIN-BC: [address] [place] [address], [address], [place] [address] , Ph. [facility] [id number] [facility] 2022-04-16 22:43:00 2022-04-17 00:50:00 Emergency X ANITA BURNHAM [facility] ERT [id number] [facility] 2022-04-16 22:43:00 2022-04-17 00:50:00 Emergency Anita Burnham [facility] 1..840.114 350.1.13.10 4.2.7.2.686 [id number] [facility] 2021-06-25 04:57:00 2021-06-25 04:57:00 Outpatient VasquezyoCarlinAdina [facility] [id number] 2021-06-25 00:00:00 2021-06-25 00:00:00 Liliane Calhoun, FARM MECHANIC: [address] [facility] [address], [place] [address] , Ph. [facility] [facility] [id number] [facility] 2020-06-21 09:45:00 2020-06-21 09:45:00 Outpatient R [facility] [id number] [facility] 2020-06-16 10:00:00 2020-06-16 10:00:00 Outpatient R [facility] [id number] [facility] 2020-04-04 09:30:00 2020-04-04 09:30:00 Outpatient R SETHARNALDO LATASHA [facility] [id number] [facility] 2020-03-14 10:24:38 2020-03-14 10:39:33 Nurse Visit Nurse, [facility] 1..840.114 350.1.13.10 4.2.7.2.686 [id number] 134 [id number] [facility] 2020-03-14 10:30:00 2020-03-14 10:30:00 Outpatient R [facility] [id number] [facility] 2020-03-14 00:00:00 2020-03-14 00:00:00 Letter (Out) Nurse, [facility] 1.2.840.114 350.1.13.10 4.2.7.2.686 [id number] 134 [id number] [facility] 2019-12-31 15:05:56 2019-12-31 16:13:40 Office Visit Phillip [facility] 1.2.840.114 350.1.13.10 4.2.7.2.686 [id number] 134 [id number] [facility] 2019-12-31 15:00:00 2019-12-31 15:00:00 Outpatient R PHILLIP POPE [facility] [id number] [facility] 2019-12-31 00:00:00 2019-12-31 00:00:00 Orders Only Doctor Unassigned, [place] [facility] 1.2.840.114 350.1.13.10 4.2.7.2.686 [id number] [id number] [facility] 2019-12-19 00:00:00 2019-12-19 00:00:00 Case Management JimEva [facility] 1.2.840.114 350.1.13.10 4.2.7.2.686 [id number] 134 [id number] [facility] 2019-12-17 09:21:03 2019-12-17 09:36:03 Pump Assembler Visit 2, Adc Lab YogeshefrenEva nolen [facility] 1.2.840.114 350.1.13.10 4.2.7.2.686 [id number] [facility] 2019-12-17 08:37:21 2019-12-17 09:11:55 Office Visit JimEva [facility] 1.2.840.114 350.1.13.10 4.2.7.2.686 [id number] 134 [id number] [facility] 2019-12-17 08:30:00 2019-12-17 08:30:00 Outpatient R EVA FERNANDEZ [facility] [id number] [facility] 2019-09-21 09:00:00 2019-09-21 09:00:00 Outpatient R [facility] [id number] [facility] 2019-08-26 00:00:00 2019-08-26 00:00:00 Case Management Eva Fernandez [facility] 1.2840.114 350.1.13.10 4.2.7.2.686 [id number] 134 [id number] [facility] 2019-08-25 15:23:20 2019-08-25 15:38:20 Pump Assembler Visit 2, Adc Lab [facility] 1.2840.114 350.1.13.10 4.2.7.2.686 [id number] [facility] 2019-08-25 10:14:24 2019-08-25 10:47:55 Office Visit Eva Fernandez [facility] 1.2840.114 350.1.13.10 4.2.7.2.686 [id number] 134 [id number] [facility] 2019-08-25 09:30:00 2019-08-25 09:30:00 Outpatient R EVA FERNANDEZ [facility] [id number] [facility] 2019-08-25 00:00:00 2019-08-25 00:00:00 Orders Only Doctor Unassigned, [place] [facility] 1.2840.114 350.1.13.10 4.2.7.2.686 [id number] [facility] 2019-06-22 00:00:00 2019-06-22 00:00:00 Telephone [facility] 1.2840.114 350.1.13.10 4.2.7.2.686 [id number] 134 [id number] [facility] 2019-06-16 10:30:00 2019-06-16 11:36:54 Outpatient R EVA FERNANDEZ [facility] [id number] [facility] Results Test Description Test Time Test Comments Results Result Co mments Source [facility] Neisseria gonorrhoeae rRNA panel - Specimen by JONI with probe [id number] 00:00:00* Test Item Value Reference Range Interpretation Comme nts aptima combo 2 swab (CT) (te st code = aptima combo 2 swab (CT)) CT POS negative A aptima combo 2 swab (GC) (te st code = aptima combo 2 swab (GC)) GC NEG negative [facility] MedicalCBC W Ordered Manual Differential panel - [id number] 00:00:00 * Test Item Value Reference Range Interpretation Comme nts WBC (test code = WBC) 7.9 10 3.7-12.0 RBC (test code = RBC) 4.87 10 3.60-5.50 HGB (test code = HGB) 14.2 g/dL 11.5-15.6 HCT (test code = HCT) 42.6 % 34.5-46.5 MCV (test code = MCV) 87.4 um 80.0-102.0 MCH (test code = MCH) 29.2 pg 25.0-34.1 MCHC (test code = MCHC) 33.4 g/dL 29.0-35.0 RDW (test code = RDW) 13.7 % 10.9-16.9 plt (test code = plt) 246 10 136-392 MPV (test code = MPV) 10.1 um 7.4-11.1 segmented neutrophil (test c ode = segmented neutrophil) 38 36-78 monocyte (test code = monocyte) 5 0-13 lymphocyte (test code = lymphocyte) 32 12-48 eosinophil (test code = eosinophil) 24 0-8 H basophil (test code = basophil) 1 0-2 RBC morphology (test code = RBC morphology) Normal platelet morphology (test co de = platelet morphology) Normal platelet estimate (test code = platelet estimate) Adequate [facility] panel - Serum or [id number] 00:00:00* Test Item Value Reference Range Interpretation Comme nts sodium (test code = sodium) 140 mmol/L 136-145 potassium (test code = potassium) 4.2 mmol/L 3.5-5.5 chloride (test code = chloride) 103 mmol/L 98-107 CO2 (test code = CO2) 25 mmol/ L 23-31 glucose (test code = glucose) 87 mg/dL 70-99 BUN (test code = BUN) 15 mg/dL 6-20 creatinine (test code = creatinine) 0.9 mg/dL 0.5-0.9 calcium (test code = calcium) 10.0 mg/dL 8.6-10.4 total protein (test code = total protein) 7.1 g/dL 6.0-8.3 albumin (test code = albumin) 4.8 g/dL 3.5-5.2 total bilirubin (test code = total bilirubin) 0.3 mg/dL 0.0-1.2 alkaline phosphatase (test code = alkaline phosphatase) 98 U/L 44-147 AST (SGOT) (test code = AST (SGOT)) 24 U/L 0-32 ALT (SGPT) (test code = ALT (SGPT)) 16 U/L 0-33 globulin (test code = globulin) 2.3 g/dL 1.7-3.7 A/G ratio (test code = A/G ratio) 2.1 calc. 1.1-2.9 BUN/creatinine ratio (test code = BUN/creatinine ratio) 16.7 calc 10.0-28.0 eGFR (test code = eGFR) 92.699 mL/min/1.73A? >60.000 [facility] T4 and TSH panel - Serum or [id number] 00:00:00* Test Item Value Reference Range Interpretation Comme nts TSH (test code = TSH) 1.010 uIU/mL 0.500-4.530 free T4 (test code = free T4) 1.32 NG/dL 0.80-1.73 [facility] - Serum or [id number] 00:00:00* Test Item Value Reference Range Interpretation Comme nts cholesterol (test code = cholesterol) 229 mg/dL 0-200 H triglycerides (test code = triglycerides) 74 mg/dL 10-150 HDL cholesterol (test code = HDL cholesterol) 80 mg/dL >50 HDL risk factor (test code = HDL risk factor) 2.9 calc. VLDL cholesterol (test code = VLDL cholesterol) 15 calc dldl (test code = dldl) 136 mg/dL <100 H [facility] METABOLIC PANEL (70074)2022-04-17 05:35:14* Test Item Value Reference Range Interpretation Comme nts NA (test code = 3096471641) 137 mmol/L 135-145 K (test code = 7493861809) 3.5 mmol/L 3.5-5.0 CL (test code = 6787391598) 104 mmol/L 98-108 CO2 TOTAL (test code = 0025885507) 24 mmol/L 23-31 AGAP (test code = 7731209708) 2-16 BUN (test code = 3726949371) 14 mg/dL 7-23 GLUCOSE (test code = 3280217135) 92 mg/dL 70-110 CREATININE (test code = 4502951117) 0.92 mg/dL 0.50-1.04 TOTAL BILI (test code = 9170176969) 0.6 mg/dL 0.1-1.1 CALCIUM (test code = 1966434413) 9.5 mg/dL 8.6-10.6 T PROTEIN (test code = 9256234921) 7.3 g/dL 6.3-8.2 ALBUMIN (test code = 9635915711) 4.8 g/dL 3.5-5.0 ALK PHOS (test code = 7495199805) 89 U/L 34-122 ALTv (test code = 1742-6) 21 U/L 5-35 AST(SGOT) (test code = 7337771162) 24 U/L 13-40 eGFR (test code = 8653776677) mL/min/1.73m2 TITA (test code = TITA) Association of Glomerular Filtration Rate (GFR) and Staging of Kidney Disease* + + +- +| GFR (mL/min/1.73 m2) ?| With Kidney Damage ?| ?Without Kidney Damage+ ------+ ----+ ------+| ?>90 ?| ?Stage one ?| ? Normal ?+ -+ + -+| ?60-89 ?| ?Stage two ?| ? Decreased GFR ? + + +- +| ?30-59 ?| ?Stage three ?| ? Stage three ? + + +- +| ?15-29 ?| ?Stage four ? | ? Stage four ?+ -+ + -+| ?<15 (or dialysis) ? ?| ?Stage five ? | ? Stage five ?+ -+ + -+ *Each stage assumes the associated GFR level has been in effect for at least three months. ?Stages 1 to 5, with or without kidney disease, indicate chronic kidney disease. Notes: Determination of stages one and two (with eGFR >59mL/min/1.73 m2) requires estimation of kidney damage for at least three months as defined by structural or functional abnormalities of the kidney, manifested by either:Pathological abnormalities or Markers of kidney damage (including abnormalities in the composition of the blood or urine or abnormalities in imaging tests). [facility]:34:34* Test Item Value Reference Range Interpretation Comme [facility] LIPASE (test code = 9769819749) 68 U/L 0-220 Lab Interpretation (test cod e = 94862-5) Normal [facility] HospitalPROT[facility] / [id number] 05:25:55* Test Item Value Reference Range Interpretation Comme [facility] PROTIME PATIENT (test code = 5964-2) See_Comment [Automated [employer]] The system which generated this result transmitted reference range: 12.0 - 14.7 Seconds. The reference range was not used to interpret this result as normal/abnormal. INR (test code = 6301-6) Normal INR <1.1; Warfarin Therapeutic range 2.0 to 3.0 or 2.5 to 3.5, depending upon the indications. Lab Interpretation (test code = 88607-5) Normal [facility] HospitalCBC WITH [id number] 05:18:31* Test Item Value Reference Range Interpretation Comme [facility] WBC (test code = 6690-2) See_Comment H [Automated [employer]] The system which generated this result transmitted reference range: 4.30 - 11.10 10*3/?L. The reference range was not used to interpret this result as normal/abnormal. RBC (test code = 789-8) See_Comment [Automated [employer]] The system which generated this result [...] 34.6 g/dL 31.6-35.1 RDW-SD (test code = 30705-4) 37.1 fL 39.0-49.9 L RDW-CV (test code = 788-0) 12.3 % 12.0-15.5 PLT (test code = 777-3) See_Comment [Automated [employer]] The system which generated this result transmitted reference range: 166 - 358 10*3/?L. The reference range was not used to interpret this result as normal/abnormal. MPV (test code = 23424-4) 11.8 fL 9.5-12.9 NRBC/100 WBC (test code = 0906036062) See_Comment [Automated [employer]] The system which generated this result transmitted reference range: 0.0 - 10.0 /100 WBCs. The reference range was not used to interpret this result as normal/abnormal. NRBC x10^3 (test code = 3267705670) See_Comment [Automated [employer]] The system which generated this result transmitted reference range: 10*3/?L. The reference range was not used to interpret this result as normal/abnormal. GRAN MAT (NEUT) % (test code = 770-8) 77.2 % IMM GRAN % (test code = 6339961390) 0.40 % LYMPH % (test code = 736-9) 15.2 % MONO % (test code = 5905-5) 5.9 % EOS % (test code = 713-8) 0.8 % BASO % (test code = 706-2) 0.5 % GRAN MAT x10^3(ANC) (test code = 1807976332) 9.95 10*3/uL 1.88-7.09 H IMM GRAN x10^3 (test code = 1451077330) 0.05 10*3/uL 0.00-0.06 LYMPH x10^3 (test code = 731-0) 1.95 10*3/uL 1.32-3.29 MONO x10^3 (test code = 742-7) 0.76 10*3/uL 0.33-0.92 EOS x10^3 (test code = 711-2) 0.10 10*3/uL 0.03-0.39 BASO x10^3 (test code = 704-7) 0.06 10*3/uL 0.01-0.07 Lab Interpretation (test code = 86593-7) Abnormal [facility] HospitalPOCT [id number] 05:13:00* Test Item Value Reference Range Interpretation Comme [facility] POCT PREG (test code = 1605) negative On board controls acceptable with C Line (test code = 3574) present POCT PREG LOT # (test code = 3575) [id number] POCT PREG TEST DATE ( test code = 3576) 09/06/2022 Lab Interpretation (test cod e = 08388-9) Normal [facility] + B and SARS CoV + SARS CoV 2 Ag panel, IA, upper respiratory [id number] 15:42:00* Test Item Value Reference Range Interpretation Comme [facility] RAPID SARS COV (test code = RAPID SARS COV) negative RAPID FLU A (test code = RAP ID FLU A) negative RAPID FLU B (test code = RAP ID FLU B) negative [facility] W Auto Differential panel - [id number] 02:07:00 * Test Item Value Reference Range Interpretation Comme [facility] white blood count (test code = white blood count) 9.1 K/uL 4.0-11.5 red blood count (test code = red blood count) 5.09 M/uL 3.80-5.20 hemoglobin (test code = hemoglobin) 14.5 g/dL 10.5-15.7 hematocrit (test code = hematocrit) 44.4 % 34.0-50.0 MCV [Entitic volume] (test c ode = 79646-5) 87.2 fL 86.0-100.0 mean corpuscular hemoglobin (test [...] neutrophils/100 leukocytes in Blood (test code = 75261-0) 69.2 % 44.4-80.1 Immature granulocytes [#/vol ume] in Blood (test code = 30550-6) 0.03 K/uL 0.00-0.03 lymphocyte% (test code = lymphocyte%) 21.0 % 10.0-50.0 mono % (test code = mono %) 5.5 % 3.6-12.0 eos % (test code = eos %) 3.2 % 0.0-5.4 Basophils/100 leukocytes in Unspecified specimen (test code = 31496-9) 0.8 % 0.1-1.2 Band form neutrophils [#/vol ume] in Blood (test code = 19841-5) 6.33 K/uL 1.56-6.13 H Lymphocytes [#/volume] in Unspecified specimen by Automated count (test code = 66919-5) 1.92 K/uL 1.18-3.74 mono # (test code = mono #) 0.50 K/uL 0.24-0.86 eos # (test code = eos #) 0.29 K/uL 0.04-0.36 basophil # (test code = baso omari #) 0.07 K/uL 0.01-0.08 NRBC% (test code = NRBC%) 0 /100 WBC 0-0.2 NRBC# (test code = NRBC#) 0 K[facility]L [facility] - Serum or Ttygix5273-22-29 02:07:00* Test Item Value Reference Range Interpretation [...] (test code = cholesterol risk ratio) 3.[address] [facility] GroupUrinalysis complete W Reflex Culture panel - Urine 2021-06-25 02:07:00* Test Item Value Reference Range Interpretation Comme nts Color of Urine by Auto (test code = 97775-7) yellow Appearance of Urine (test co de = 5767-9) SL cloudy clear A Glucose [Presence] in Urine by Automated test strip (test code = 72164-0) negative negative Bilirubin.total [Mass/volume ] in Urine (test code = 1978-6) negative negative Ketones [Mass/volume] in Uri ne by Automated test strip (test code = 50950-8) =1 negative H Specific gravity of Urine by Automated test strip (test code = 31680-0) 1.031 1.003-1.030 H blood urine (test code = blo od urine) negative negative pH of Urine (test code = 2756-5) 5.500 5-9 protein urine (UA) (test cod e = protein urine (UA)) trace negative Urobilinogen [Presence] in U rine (test code = 44456-6) normal 0.2-1.0 Nitrite [Presence] in Urine by Test strip (test code = 5802-4) negative negative Leukocyte esterase [Presence ] in Urine by Automated test strip (test code = 26011-5) =4 negative H Erythrocytes [#/volume] in U rine by Automated count (test code = 798-9) =11-14 0-5 H Leukocytes [#/area] in Urine sediment by Automated count (test code = 85151-9) =30-49 0-5 H Epithelial cells [Presence] in Urine sediment by Light microscopy (test code = 51507-3) =11-14 0-5 Bacteria identified in Urine by Culture (test code = 630-4) large (3 none detect H Casts [#/area] in Urine sedi ment by Automated count (test code = 38805-9) =11-14 none detect H urine culture added? (test c ode = urine culture added?) yes trichomonas, urine (test cod e = trichomonas, urine) =3-4 none seen H Pathologic casts [Presence] in Urine by Automated (test code = 82315-1) none seen none detect [facility] identified in Urine by Zdtuwzy2634-74-93 02:07:00Bacteria Ur [facility] [Mass/volume] in Mgpgd7771-19-71 00:00:00* Test Item Value Reference Range Interpretation Comme nts Hemoglobin A1c [Mass/volume] in Blood (test code = 99131-8) 5.1 % 4.0-6.0 [facility] 2000 panel - Serum or [...] (test code = 6768-6) 93 U/L 35-[address] [facility] GroupThyrotropin [Units/volume] in Serum or [id number] 00:00:00* Test Item Value Reference Range Interpretation Comme nts Thyrotropin [Units/volume] i n Serum or Plasma (test code = 3016-3) 0.73 uIU/mL 0.36-3.[address] [facility] GroupThyroxine (T4) [Mass/volume] in Serum or Abimly7918-56-73 00:00:00* Test Item Value Reference Range Interpretation Comme nts T4 (test code = T4) 10.4 ug/dL 4.5-11.7 [facility] [id number] 20:40:00* Test Item Value Reference Range Interpretation Comme nts POCT PREG (test code = 1605) Negative On board controls acceptable with C Line (test code = 3574) Yes POCT PREG LOT # (test code = 3575) POCT PREG TEST DATE ( test code = 3576) [facility] [id number] 20:40:00* Test Item Value Reference Range Interpretation Comme nts POCT PREG (test code = 1605) Negative On board controls acceptable with C Line (test code = 3574) Yes POCT PREG LOT # (test code = 3575) POCT PREG TEST DATE ( test code = 3576) [facility] [id number] 13:50:00* Test Item Value Reference Range Interpretation Comme nts POCT PREG (test code = 1605) Negative On board controls acceptable with C Line (test code = 3574) Yes POCT PREG LOT # (test code = 3575) POCT PREG TEST DATE ( test code = 3576) [facility] [id number] 13:50:00* Test Item Value Reference Range Interpretation Comme nts POCT PREG (test code = 1605) Negative On board controls acceptable with C Line (test code = 3574) Yes POCT PREG LOT # (test code = 3575) POCT PREG TEST DATE ( test code = 3576) [facility]"
[2024-06-30] MEDS ORDERED: ONDANSETRON 4 MG (ODT) TAB ONE (15:30)
--- NOTE | 2024-06-30 15:36 | EDPHYS ---
Physician Documentation [facility] Name: Byron Trinidad Age: 24 yrs Sex: Female : 2000 Arrival Date: 06/30/2024 Time: 15:12 Bed IW1 Private MD: ED Physician Kevin Lala HPI: 06/30 15:38 This 24 yrs old Female presents to ER via Ambulatory with complaints of Work note. kb 15:38 Pt is a 24 year old female who presents to get a note to return to work. Pt states she kb woke up with a migraine, took a shower and the smell of the soap made her nauseated so she vomited. States she vomited once more when she got out of the shower so she didn't go to work. States she is feeling better now.. Historical: - Allergies: 15:32 No Known Allergies; ld1 - PMHx: 15:32 Asthma; ld1 - PSHx: 15:32 None; ld1 - Immunization history:: Adult Immunizations up to date. - Infectious Disease History:: Denies. - Social history:: Smoking status: Patient denies any tobacco usage or history of. ROS: 15:45 Constitutional: As per HPI kb Exam: 15:45 Constitutional: This is a well developed, well nourished patient who is awake, alert, kb and in no acute distress. Head/Face: Normocephalic, atraumatic. ENT: Moist Mucous membranes Cardiovascular: Regular rate Respiratory: Respirations even and unlabored. No increased work of breathing. Talking in full sentences Abdomen/GI: Soft, non-tender. No distention Skin: Warm, dry with normal turgor. Normal color. MS/ Extremity: Pulses equal, no cyanosis. Neurovascular intact. Full, normal range of motion. Neuro: Awake and alert, GCS 15, oriented to person, place, time, and situation. Vital Signs: 15:31 BP 122 / 92; Pulse 84; Resp 18; Temp 98.2(TE); Pulse Ox 100% on R/A; Weight 58.97 kg; ld1 Height 5 ft. 1 in. ; Pain 0/10; 15:31 Body Mass Index 24.56 (58.97 kg, 154.94 cm) ld1 15:31 Pain Scale: Adult ld1 MDM: 15:17 Medical Screening Exam initiated kb 15:45 Differential Diagnosis migraine, tension headache, abnormal electrolytes, dehydration. kb Data reviewed: vital signs, nurses notes. Test considered but Not performed: Labs: cbc, cmp considered but pt states she is feeling better and just came for a work note. States she will return if she feels like she needs a testing done. . Counseling: I had a detailed discussion with the patient and/or guardian regarding the historical points, exam findings, and any diagnostic results supporting the discharge/admit diagnosis, the need for outpatient follow up, a family practitioner, to return to the emergency department if symptoms worsen or persist or if there are any questions or concerns that arise at home. Administered Medications: 15:43 Drug: Ondansetron Oral Disintegrating Tablet Oral Disintegrating Tablet 4 mg PO once ld1 Route: PO; 15:43 Follow up: Response: No adverse reaction ld1 Disposition Summary: 06/30/24 15:35 Discharge Ordered Notes: Location: Home kb Condition: Stable kb Diagnosis - Nausea kb - Encounter for issue of other medical certificate - work note kb Followup: kb - With: Emergency Department - When: As needed - Reason: Worsening of condition Followup: kb - With: Private Physician - When: 2 - 3 days - Reason: Recheck today's complaints, Continuance of care, Re-evaluation by your physician Discharge Instructions: - Discharge Summary Sheet kb - Migraine Headache, Cfky-mo-Hebf kb - Nausea, Adult, Qbhc-ok-Mhkr kb Forms: - Work release form kb - Medication Reconciliation Form kb - Antibiotic Education kb - Prescription Opioid Use kb - Patient Portal Instructions kb - Leadership Thank You Letter kb Prescriptions: - Zofran 4 mg Oral tablet - take 1 tablet ORAL route every 6 hours As needed; 12 tablet; Refills: 0, kb Product Selection Permitted Signatures: Tania Rose FNP-C FNP-Benita Louie, RN RN ld1
--- NOTE | 2024-06-30 15:36 | ER ---
Nurse's Notes [facility] Name: Byron Trinidad Age: 24 yrs Sex: Female : 2000 Arrival Date: 06/30/2024 Time: 15:12 Bed IW1 Private MD: Diagnosis: Nausea;Encounter for issue of other medical certificate-work note Presentation: 06/30 15:31 Chief complaint: Patient states: woke up with migraine this morning - threw up three ld1 times. Reports recent stress. Requesting work note. Coronavirus screen: At this time, the client does not indicate any symptoms associated with coronavirus-19. Ebola Screen: No symptoms or risks identified at this time. Initial Sepsis Screen: Does the patient meet any 2 criteria? No. Patient's initial sepsis screen is negative. Does the patient have a suspected source of infection?. Risk Assessment: Do you want to hurt yourself or someone else? Patient reports no desire to harm self or others. Onset of symptoms was June 30, 2024. 15:31 Method Of Arrival: Ambulatory ld1 15:31 Acuity: DILAN 4 ld1 Triage Assessment: 15:32 General: Appears in no apparent distress. comfortable, Behavior is calm, cooperative, ld1 appropriate for age. Pain: Denies pain. EENT: No signs and/or symptoms were reported regarding the EENT system. Neuro: Level of Consciousness is awake, alert, obeys commands, Oriented to person, place, time, situation. Cardiovascular: Capillary refill < 3 seconds Patient's skin is warm and dry. Respiratory: Airway is patent Respiratory effort is even, unlabored. GI: Abdomen is flat, non-distended. : No signs and/or symptoms were reported regarding the genitourinary system. Derm: No signs and/or symptoms reported regarding the dermatologic system. Musculoskeletal: No signs and/or symptoms reported regarding the musculoskeletal system. Historical: - Allergies: 15:32 No Known Allergies; ld1 - PMHx: 15:32 Asthma; ld1 - PSHx: 15:32 None; ld1 - Immunization history:: Adult Immunizations up to date. - Infectious Disease History:: Denies. - Social history:: Smoking status: Patient denies any tobacco usage or history of. Screenin:33 [facility] ED Fall Risk Assessment (Adult) History of falling in the last 3 months, ld1 including since admission No falls in past 3 months (0 pts) Confusion or Disorientation No (0 pts) Intoxicated or Sedated No (0 pts) Impaired Gait No (0 pts) Mobility Assist Device Used No (0 pt) Altered Elimination No (0 pt) Score/Fall Risk Level 0 - 2 = Low Risk Oriented to surroundings, Maintained a safe environment, Educated pt \T\ family on fall prevention, incl call for assistance when getting out of bed, Assessed \T\ reinforced patient's understanding of fall precautions, Provided non-skid footwear, Hourly rounding (assess needs \T\ fall precautionary measures) done, Used ambulatory aids as needed (educated on \T\ assisted with), Used gait belt as appropriate. Abuse screen: Denies threats or abuse. Denies injuries from another. Nutritional screening: No deficits noted. Tuberculosis screening: No symptoms or risk factors identified. Assessment: 15:33 Reassessment: See triage assessment. ld1 Vital Signs: 15:31 BP 122 / 92; Pulse 84; Resp 18; Temp 98.2(TE); Pulse Ox 100% on R/A; Weight 58.97 kg; ld1 Height 5 ft. 1 in. ; Pain 0/10; 15:31 Body Mass Index 24.56 (58.97 kg, 154.94 cm) ld1 15:31 Pain Scale: Adult ld1 ED Course: 15:16 Patient arrived in ED. ra3 15:17 [facility] kb 15:17 Kevin Lala MD is Attending Physician. kb 15:32 Triage completed. ld1 15:32 Arm band placed on right wrist. ld1 15:33 Patient has correct armband on for positive identification. Placed in gown. Bed in low ld1 position. Call light in reach. Side rails up X2. quality assurance monitor chassis on. Pulse ox on. NIBP on. Door closed. Noise minimized. Warm blanket given. 15:33 No provider procedures requiring assistance completed. Patient did not have IV access ld1 during this emergency room visit. Administered Medications: 15:43 Drug: Ondansetron Oral Disintegrating Tablet Oral Disintegrating Tablet 4 mg PO once ld1 Route: PO; 15:43 Follow up: Response: No adverse reaction ld1 Medication: 15:33 VIS not applicable for this client. ld1 Outcome: 15:35 Discharge ordered by . whitney 15:43 Discharged to home ambulatory, ld1 15:43 Condition: stable 15:43 Discharge instructions given to patient, Instructed on discharge instructions, follow up and referral plans. medication usage, Demonstrated understanding of instructions, follow-up care, medications, Prescriptions given X 1, 15:43 Patient left the ED. ld1 Signatures: Tania Rose FNP-C FNP-Benita Louie RN RN ld1 Minnie Mcfarlane ra3
[2024-06-30 17:20] VITALS: BP 122/92; TEMP 98.2; O2SAT 100
== END 2024-06-30 15:43 | disposition home or self-care (01) ==
LOC: ER 15:12
DX: R11.0 Nausea (principal); Z02.79 Encounter for issue of other medical certificate
CPT/HCPCS: 99284; Q0162